=== PATIENT | female | born 2000 | race Caucasian/White ===

== ENCOUNTER 2023-12-18 19:11 | Emergency (ER) | payer OTHER, SELFPAY ==
[2023-12-18 19:13] VITALS: BP 139/86; PULSE 100; RESP 18; TEMP 37.1; O2SAT 100; BMI 42.0
--- NOTE | 2023-12-18 19:16 | HMH.EDGENADL ---
Discharge Plan Disposition Patient Disposition: Home, Self-Care Condition: Good Prescriptions Prescriptions: New amoxicillin-pot clavulanate 875-125 mg tablet 1 tab PO BID Qty: 20 0RF ondansetron 4 mg tablet,disintegrating 4 mg PO QID PRN (Reason: nausea and vomiting) Qty: 10 0RF No Action atomoxetine 25 mg capsule See Rx Instructions .ROUTE .COMPLEX Qty: 30 0RF Dose Instruction: TAKE 1 CAPSULE BY MOUTH EVERY DAY Rx Instructions: TAKE 1 CAPSULE BY MOUTH EVERY DAY Referrals Follow up/Referrals: Nolvia Steele PA [Primary Care Provider] - See instructions Activity Restrictions/Add. Instructions Additional Instructions/Restrictions: Please take Tylenol Motrin every 4 hours for symptomatic treatment. Return to the ER for any worsening signs or symptoms including increasing pain fever shortness of breath. Clinical Impressions Clinical Impression: Acute streptococcal pharyngitis Stand Alone Forms Stand Alone Forms: Work/School Release Print Language Print Language: Romanian Discharge ED Provider: Aman Pereira General Adult HPI <CARLENE Matthews - Last Filed: 12/18/23 19:58> General Chief complaint: Nausea/Vomiting/Diarrhea Stated complaint: Sore throat,body aches Time Seen by Provider: 12/18/23 19:16 History of Present Illness HPI narrative: Patient presents for evaluation of sore throat nausea vomiting diarrhea. Patient states that she woke up this morning with a very sore throat. Throughout the day she has now progressed to nausea vomiting and diarrhea and reports that it is painful to swallow. She does not report any subjective fever and denies any difficulty with oral intake although it hurts. Related Data Previous Rx's ?Medication ?Instructions ?Recorded atomoxetine 25 mg capsule See Rx Instructions .Route 03/29/22 .COMPLEX #30 caps amoxicillin 875 mg-potassium 1 tab PO BID #20 tabs 12/18/23 clavulanate 125 mg tablet ondansetron 4 mg disintegrating 4 mg PO QID PRN nausea and 12/18/23 tablet vomiting #10 tabs Allergies Allergy/AdvReac Type Severity Reaction Status Date / Time Sulfa (Sulfonamide Allergy Mild Verified 01/18/22 10:51 Antibiotics) [SULFA (SULFONAMIDE ANTIBIOTICS)] sulfamethoxazole Allergy Unknown Verified 01/18/22 10:51 [From BACTRIM] trimethoprim [From BACTRIM] Allergy Unknown Verified 01/18/22 10:51 PFS <CARLENE Matthews - Last Filed: 12/18/23 19:58> [facility] Disclaimer: The information contained in this section may have been updated after the patient was seen, as this information can be updated by other users. Medical History (Updated 12/18/23 @ 19:36 by CARLENE Matthews) Attention Deficit Hyperactivity Disorder (ADHD) Social History Smoking Status: Never smoker alcohol intake: never substance use type: denies use current occupational status: employed Travel in the last 8 weeks: None <CARLENE Matthews Last Filed: 12/18/23 19:58> ROS Obtained: Yes Systems reviewed as appropriate & no additional complaints except as documented Physical Exam <CARLENE Matthews - Last Filed: 12/18/23 19:58> General General appearance: alert and in no apparent distress Head Head exam: atraumatic and normal inspection Eye Eye exam: Present normal appearance, PERRL and EOMI ENT ENT exam: Present normal exam, normal oropharynx and mucous membranes moist Neck Neck exam: Present normal inspection, full ROM and trachea midline; Absent lymphadenopathy Chest Chest inspection: Present normal inspection and symmetric chest wall rise Respiratory Respiratory exam: Present normal lung sounds bilaterally Cardiovascular Cardiovascular exam: Present regular rate Abdominal Exam Abdominal exam: Present soft and normal bowel sounds; Absent tenderness, guarding or rebound Extremities Exam Extremities exam: Present normal inspection and full ROM Neurological Exam Neurological exam: Present alert and oriented X3 Psychiatric Psychiatric exam: Present normal affect and normal mood Skin Skin exam: Present warm, dry and normal color Lymphatic Lymphatic Findings: no adenopathy Medical Decision Making <CARLENE Matthews - Last Filed: 12/18/23 19:58> Tuan Inquiry Pt receiving controlled substance: No Vital Signs: 12/18/23 19:13 12/18/23 20:04 Temperature 98.7 F 98.2 F Temperature Source Oral Oral Pulse Rate 72 Pulse Rate [Right Brachial] 100 H Respiratory Rate 18 19 Blood Pressure 144/92 H Blood Pressure [Right Arm] 139/86 Blood Pressure Mean [Right Arm] 103 Blood Pressure Source Automatic Cuff Blood Pressure Source [Right Arm] Automatic Cuff Blood Pressure Position Sitting Blood Pressure Position [Right Arm] Sitting 02 Sat by Pulse Oximetry 100 Oxygen Delivery Method Room Air Room Air Lab Data Lab results reviewed: Yes I reviewed the patient's lab results. Lab Results 12/18/23 19:20: SARS-CoV-2 (PCR) Not detected, Influenza A Untype (PCR) Not detected, Influenza Type B (PCR) Not detected, Group A Strep Rapid Negative Orders (Tests/Meds): ED MEDICATIONS Discontinued Medications Generic Name Dose Route Start Last Admin Trade Name Araceli PRN Reason Stop Dose Admin Acetaminophen 1,000 mg 12/18/23 19:24 12/18/23 19:32 Acetaminophen 500mg Tab PO 12/18/23 19:25 1,000 mg ONCE ONE Administration Amoxicillin/Clavulanate Potassium 1 each 12/18/23 19:25 12/18/23 19:32 Amoxicillin/Clavulanate Potassium 875/125mg Tablet PO 12/18/23 19:26 1 each ONCE ONE Administration Ibuprofen 800 mg 12/18/23 19:24 12/18/23 19:32 Ibuprofen 400 Mg Tablet PO 12/18/23 19:25 800 mg ONCE ONE Administration ORDERS Category Date Time Status Rapid PCR Covid and Flu A/B Stat Lab 12/18/23 19:20 Completed Strep Scrn Group A (Rapid) Stat Lab 12/18/23 19:20 Completed Strep Screen Confirmation Stat Micro 12/18/23 19:20 Received Medical Decision Narrative: In summary patient is a 23-year-old female who presents to the emergency department for evaluation of sore throat nausea vomiting diarrhea. Patient is normotensive but tachycardic at the time my exam of the 120 upon arrival, afebrile. Physical exam is remarkable for exudative pharyngitis with beefy red tonsils, bilateral cervical lymphadenopathy benign abdominal exam with hyperactive bowel sounds. Differential diagnosis includes strep pharyngitis versus other bacterial pharyngitis. Initial workup will be conducted with rapid strep. Initial interventions include Zofran acetaminophen ibuprofen. Initial workup reviewed by me and her rapid strep is negative. Upon repeat evaluation patient heart rate is now down to 100 at the time of my exam and reports moderate improvement in her constitutional symptoms. Given this patient is given a prescription for Augmentin with first dose given here. While group A strep is negative patient definitely has exudative pharyngitis and has all the hallmarks of a streptococcal infection. Patient given strict return precaution <Aman Pereira MD - Last Filed: 12/18/23 21:32> Vital Signs: 12/18/23 19:13 12/18/23 20:04 Temperature 98.7 F 98.2 F Temperature Source Oral Oral Pulse Rate 72 Pulse Rate [Right Brachial] 100 H Respiratory Rate 18 19 Blood Pressure 144/92 H Blood Pressure [Right Arm] 139/86 Blood Pressure Mean [Right Arm] 103 Blood Pressure Source Automatic Cuff Blood Pressure Source [Right Arm] Automatic Cuff Blood Pressure Position Sitting Blood Pressure Position [Right Arm] Sitting 02 Sat by Pulse Oximetry 100 Oxygen Delivery Method Room Air Room Air Lab Data Lab Results 12/18/23 19:20: SARS-CoV-2 (PCR) Not detected, Influenza A Untype (PCR) Not detected, Influenza Type B (PCR) Not detected, Group A Strep Rapid Negative Orders (Tests/Meds): ED MEDICATIONS Discontinued Medications Generic Name Dose Route Start Last Admin Trade Name Araceli PRN Reason Stop Dose Admin Acetaminophen 1,000 mg 12/18/23 19:24 12/18/23 19:32 Acetaminophen 500mg Tab PO 12/18/23 19:25 1,000 mg ONCE ONE Administration Amoxicillin/Clavulanate Potassium 1 each 12/18/23 19:25 12/18/23 19:32 Amoxicillin/Clavulanate Potassium 875/125mg Tablet PO 12/18/23 19:26 1 each ONCE ONE Administration Ibuprofen 800 mg 12/18/23 19:24 12/18/23 19:32 Ibuprofen 400 Mg Tablet PO 12/18/23 19:25 800 mg ONCE ONE Administration ORDERS Category Date Time Status Rapid PCR Covid and Flu A/B Stat Lab 12/18/23 19:20 Completed Strep Scrn Group A (Rapid) Stat Lab 12/18/23 19:20 Completed Strep Screen Confirmation Stat Micro 12/18/23 19:20 Received Medical Decision Narrative: In summary patient is a 23-year-old female who presents to the emergency department for evaluation of sore throat nausea vomiting diarrhea. Patient is normotensive but tachycardic at the time my exam of the 120 upon arrival, afebrile. Physical exam is remarkable for exudative pharyngitis with beefy red tonsils, bilateral cervical lymphadenopathy benign abdominal exam with hyperactive bowel sounds. Differential diagnosis includes strep pharyngitis versus other bacterial pharyngitis. Initial workup will be conducted with rapid strep. Initial interventions include Zofran acetaminophen ibuprofen. Initial workup reviewed by me and her rapid strep is negative. Upon repeat evaluation patient heart rate is now down to 100 at the time of my exam and reports moderate improvement in her constitutional symptoms. Given this patient is given a prescription for Augmentin with first dose given here. While group A strep is negative patient definitely has exudative pharyngitis and has all the hallmarks of a streptococcal infection. Patient given strict return precaution I was consulted by the ANTHONY, and we discussed the complexity of the problems being addressed. I approved the treatment and management plan for this patient's care in the Emergency Department, thus performing a substantive portion of the medical decision making. Aman Pereira MD Critical Care <CARLENE Matthews - Last Filed: 12/18/23 19:58> Critical Care Time Critical Care Time: No
[2023-12-18 19:27] LABS: Coronavirus 19, PCR Not Detected (NotDetected); Influenza A, PCR Not Detected (NotDetected); Influenza B, PCR Not Detected (NotDetected)
[2023-12-18] MEDS: IBUPROFEN 400 MG TABLET 800 MG PO (19:32)
[2023-12-18] MEDS: ACETAMINOPHEN 500MG TAB 1000 MG PO (19:32)
[2023-12-18] MEDS: AMOXICILLIN/CLAVULANATE POTASSIUM 875/125MG TABLET 1 EACH PO (19:32)
[2023-12-18 19:42] LABS: Strep Scrn Group A (Rapid) Negative (Negative)
[2023-12-18 20:04] VITALS: BP 144/92; PULSE 72; RESP 19; TEMP 36.8; O2SAT 98
== END 2023-12-18 20:06 | disposition home or self-care (01) ==
PROVIDERS: Physician Assistant; Emergency Provider Emergency Medicine; PCP Physician Assistant
DX: J02.0 Streptococcal pharyngitis (principal); R11.2 Nausea with vomiting, unspecified; R19.7 Diarrhea, unspecified; R07.0 Pain in throat
CPT/HCPCS: 87430; 87636; 99283

== ENCOUNTER 2024-02-03 16:09 | Emergency (ER) | payer OTHER, SELFPAY ==
[2024-02-03 16:11] VITALS: BP 129/88; PULSE 97; RESP 18; TEMP 36.8; O2SAT 100; BMI 40.2
[2024-02-03 17:29] LABS: Coronavirus 19, PCR Not Detected (NotDetected); Influenza A, PCR Not Detected (NotDetected); Influenza B, PCR Not Detected (NotDetected)
--- NOTE | 2024-02-03 17:39 | HMH.EDGENADL ---
Discharge Plan Disposition Patient Disposition: Home, Self-Care Prescriptions Prescriptions: New ondansetron 4 mg tablet,disintegrating 4 mg PO Q6H PRN (Reason: nausea and vomiting) Qty: 10 0RF No Action atomoxetine 25 mg capsule See Rx Instructions .ROUTE .COMPLEX Qty: 30 0RF Dose Instruction: TAKE 1 CAPSULE BY MOUTH EVERY DAY Rx Instructions: TAKE 1 CAPSULE BY MOUTH EVERY DAY amoxicillin-pot clavulanate 875-125 mg tablet 1 tab PO BID Qty: 20 0RF ondansetron 4 mg tablet,disintegrating 4 mg PO QID PRN (Reason: nausea and vomiting) Qty: 10 0RF Referrals Follow up/Referrals: Nolvia Steele PA [Primary Care Provider] - See instructions Activity Restrictions/Add. Instructions Additional Instructions/Restrictions: Call your family doctor to establish care for this visit to the emergency department and schedule follow-up within 48 hours to ensure improvement. If you have any worsening of your condition or any other concerning signs or symptoms, return to the emergency department or your primary care doctor for further evaluation. Zofran every 6 hours as needed for nausea and vomiting. Clinical Impressions Clinical Impression: Acute viral sinusitis Print Language Print Language: Ivorian Discharge ED Provider: Aman Pereira General Adult HPI General Chief complaint: Upper Respiratory Infection Stated complaint: Sore throat,avomiting,OAKES,runny nose,no taste or sm Time Seen by Provider: 02/03/24 17:18 Mode of Arrival: Ambulatory Source of Information: Patient Limitations: No Limitations Description of Symptoms (Recalled from ER Triage Doc. by RN): body aches,stuffy nose, congestion,diarrhea. History of Present Illness HPI narrative: Please note that above description of symptoms, in this electronic medical record under categorization of recalled from ER triage doctor by RN are reflective of an initial nursing assessment, however, is not reflective of my full history and physical exam that was personally taken and clarified. Consequentially, this preceding description of symptoms, which may include the patient's categorized chief complaint in the EMR, do not reflect my personal clinical impression, and the ultimate description of history of present illness and patient stated complaints should be deferred to this section of the note. Unless stated otherwise or congruent with this section of the note, additional signs, symptoms, or incongruence should be interpreted as inaccurate with my clinical impression. Related Data Previous Rx's ?Medication ?Instructions ?Recorded atomoxetine 25 mg capsule See Rx Instructions .Route 03/29/22 .COMPLEX #30 caps amoxicillin 875 mg-potassium 1 tab PO BID #20 tabs 12/18/23 clavulanate 125 mg tablet ondansetron 4 mg disintegrating 4 mg PO QID PRN nausea and 12/18/23 tablet vomiting #10 tabs ondansetron 4 mg disintegrating 4 mg PO Q6H PRN nausea and 02/03/24 tablet vomiting #10 tabs Allergies Allergy/AdvReac Type Severity Reaction Status Date / Time Sulfa (Sulfonamide Allergy Mild Verified 01/18/22 10:51 Antibiotics) [SULFA (SULFONAMIDE ANTIBIOTICS)] sulfamethoxazole Allergy Unknown Verified 01/18/22 10:51 [From BACTRIM] trimethoprim [From BACTRIM] Allergy Unknown Verified 01/18/22 10:51 PFSH PFS Disclaimer: The information contained in this section may have been updated after the patient was seen, as this information can be updated by other users. Medical History (Updated 02/03/24 @ 17:46 by Aman Pereira MD) Attention Deficit Hyperactivity Disorder (ADHD) Social History Smoking Status: Never smoker alcohol intake: never substance use type: denies use current occupational status: employed Travel in the last 8 weeks: None Other Medical History Have you received the Flu Vaccine for this season: No Have you received the Pneumonia Vaccine: No ROS Obtained: Yes All systems reviewed & no additional complaints except as documented Physical Exam General General appearance: alert Head Head exam: atraumatic and normocephalic Eye Eye exam: Present normal appearance, PERRL and EOMI ENT ENT exam: Present TM's normal bilaterally and normal external ear exam Neck Neck exam: Present normal inspection, full ROM and trachea midline Respiratory Respiratory exam: Present normal lung sounds bilaterally; Absent respiratory distress, wheezes, stridor, accessory muscle use or prolonged expiratory phase Cardiovascular Cardiovascular exam: Present regular rate, normal rhythm and other (Pulses equal symmetric in upper and lower extremities) Abdominal Exam Abdominal exam: Present soft; Absent distention, tenderness or pulsatile mass Extremities Exam Extremities exam: Present normal inspection; Absent edema Neurological Exam Neurological exam: Present alert, oriented X3 and CN II-XII intact; Absent motor sensory deficit Skin Skin exam: Present warm and dry; Absent diaphoresis or erythema Medical Decision Making Medical Records Medical records reviewed: Yes I reviewed the patient's medical records. Screening: Per USPSTF and CDC recommendations, given the prevalence of disease in our region, it is our hospital?s policy to screen for HIV and viral Hepatitis for all patients aged 18 and over and those with ongoing risk factors. Tuan Inquiry Pt receiving controlled substance: No Tuan was queried for this patient: No Vital Signs: 02/03/24 16:11 02/03/24 18:00 Temperature 98.3 F Temperature Source Oral Pulse Rate 80 Pulse Rate [Right] 97 H Respiratory Rate 18 Blood Pressure 108/58 L Blood Pressure [Right Arm] 129/88 Blood Pressure Mean [Right Arm] 101 02 Sat by Pulse Oximetry 100 99 Oxygen Delivery Method Room Air Lab Data Lab Results 02/03/24 17:25: SARS-CoV-2 (PCR) Not detected, Influenza A Untype (PCR) Not detected, Influenza Type B (PCR) Not detected, Group A Strep Rapid Negative Orders (Tests/Meds): ED MEDICATIONS Discontinued Medications Generic Name Dose Route Start Last Admin Trade Name Freq PRN Reason Stop Dose Admin Ondansetron HCl 4 mg 02/03/24 17:39 02/03/24 17:46 Ondansetron 4mg Odt SL 02/03/24 17:40 4 mg ONCE ONE Administration ORDERS Category Date Time Status Rapid PCR Covid and Flu A/B Stat Lab 02/03/24 17:25 Completed Rapid Strep Scrn Group A [Strep Scrn Group A (Rapid)] Lab 02/03/24 17:25 Completed Stat Strep Screen Confirmation Stat Micro 02/03/24 17:25 Received Medical Decision Narrative: This is a 23-year-old female no relevant medical history presenting with multiple complaints. Patient states that she has had a couple day onset of runny nose, cough, congestion, nausea, vomiting, loss of taste or smell, right ear ache. States that she has numerous sick contacts. Cough is productive of greenish sputum, but she feels that this is from her postnasal drip because she has been having dark green postnasal drip. Nonbloody, nonbilious vomiting. No urinary symptoms. Came for further evaluation. History obtained the patient. On arrival, very well-appearing. Normotensive, nontachycardic. Saturating 100% on room air. Patient has pharyngitis. No evidence of tonsillitis, exudate, uvular deviation, palatal swelling, trismus, external neck swelling, submental induration, dental abscess, angioedema, or other abnormal phylicia pharyngeal findings. Lungs are clear to auscultation anterior and posterior bilaterally. TMs within normal limits. Differential includes acute viral pharyngitis, viral sinusitis, among others. Patient was given Zofran for nausea. Swabs were obtained. On independent interpretation, these demonstrated negative strep and COVID. Given patient's history, physical exam, well appearance and stable vitals, blood work was considered, but not deemed necessary. Chest x-ray was also considered not deemed necessary. I feel this most likely represents acute viral pharyngitis and rhinosinusitis. Because patient at baseline without signs or symptoms of clinical decompensation, deemed appropriate for discharge. Results were relayed to patient who voiced understanding and were agreeable to outpatient management and follow up. I discussed my clinical impression with patient and answered all questions. At this time, the evidence for any other entities in the differential is insufficient to warrant any further testing or ED observation. This was explained as well. Advisory was given that persistent or worsening symptoms require further evaluation. I confirmed the understanding of this discussion. Lending Consultant disclaimer Much of this encounter note is an electronic certified medical transcriptionist spoken language to printed text. Electronic certified medical transcriptionist of the spoken language may permit errors. Although I have reviewed the note, some errors may still exist. Critical Care Critical Care Time Critical Care Time: No
[2024-02-03 17:43] LABS: Strep Scrn Group A (Rapid) Negative (Negative)
[2024-02-03] MEDS: ONDANSETRON 4MG ODT 4 MG SL (17:46)
[2024-02-03 18:00] VITALS: BP 108/58; PULSE 80; O2SAT 99
[2024-02-03 18:23] VITALS: BP 108/58; PULSE 99; RESP 18; TEMP 36.9; O2SAT 100
== END 2024-02-03 18:27 | disposition home or self-care (01) ==
PROVIDERS: Emergency Provider Emergency Medicine; PCP Physician Assistant
DX: J01.90 Acute sinusitis, unspecified (principal); J02.9 Acute pharyngitis, unspecified; R11.11 Vomiting without nausea; R51.9 Headache, unspecified; M79.10 Myalgia, unspecified site; R09.81 Nasal congestion; R19.7 Diarrhea, unspecified; R43.8 Other disturbances of smell and taste
CPT/HCPCS: 87430; 87636; 99282; Q0162

== ENCOUNTER 2024-02-18 09:30 | Emergency (ER) | payer OTHER, SELFPAY ==
[2024-02-18 09:41] VITALS: BP 118/64; PULSE 84; RESP 16; TEMP 36.6; O2SAT 99; BMI 45.7
[2024-02-18 10:03] LABS: UTC Pregnancy Test, Urine Positive (Negative)
--- NOTE | 2024-02-18 10:03 | EXP.UTC ---
Discharge Plan Disposition Patient Disposition: Home, Self-Care Condition: Good Prescriptions Prescriptions: No Action atomoxetine 25 mg capsule See Rx Instructions .ROUTE .COMPLEX Qty: 30 0RF Dose Instruction: TAKE 1 CAPSULE BY MOUTH EVERY DAY Rx Instructions: TAKE 1 CAPSULE BY MOUTH EVERY DAY amoxicillin-pot clavulanate 875-125 mg tablet 1 tab PO BID Qty: 20 0RF ondansetron 4 mg tablet,disintegrating 4 mg PO QID PRN (Reason: nausea and vomiting) Qty: 10 0RF ondansetron 4 mg tablet,disintegrating 4 mg PO Q6H PRN (Reason: nausea and vomiting) Qty: 10 0RF Referrals Follow up/Referrals: Nolvia Steele PA [Primary Care Provider] - See instructions Kristen Mauro DO [Staff Physician] - See instructions Fortino Gayle MD [Staff Physician] - See instructions Emperatriz Aldridge DO [Staff Physician] - See instructions Activity Restrictions/Add. Instructions Additional Instructions/Restrictions: Call and make appointment with OBGYN See OBGYN for further evaluation and treatment Return if needed Straight to ER if any life threatening symptoms Clinical Impressions Clinical Impression: Positive test Instructions Patient Instructions: DI for -- Discomforts and Remedies Print Language Print Language: Frisian Discharge ED Provider: Michelle Ayers [facility] General Stated complaint: possible UTI test Mode of Arrival: Ambulatory Source of Information: Patient Limitations: No Limitations Time Seen by Provider: 02/18/24 10:03 Description of Symptoms (Recalled from Triage Doc. by RN): Patient reports she is here for a test. HEENT Symptoms (Recalled from RN notes): No Resp Symptoms (Recalled from RN notes): No Skin Symptoms (Recalled from RN notes): No MS Symptoms (Recalled from RN notes): No Functional Status (Recalled from RN notes): wnl History of Present Illness Provider Complaint: Patient states that she is late on her period and took 3 home test and they was positive so today she came in to get checked to see if she may be Related Data Previous Rx's ?Medication ?Instructions ?Recorded atomoxetine 25 mg capsule See Rx Instructions .Route 03/29/22 .COMPLEX #30 caps amoxicillin 875 mg-potassium 1 tab PO BID #20 tabs 12/18/23 clavulanate 125 mg tablet ondansetron 4 mg disintegrating 4 mg PO QID PRN nausea and 12/18/23 tablet vomiting #10 tabs ondansetron 4 mg disintegrating 4 mg PO Q6H PRN nausea and 02/03/24 tablet vomiting #10 tabs Allergies Allergy/AdvReac Type Severity Reaction Status Date / Time Sulfa (Sulfonamide Allergy Mild Verified 01/18/22 10:51 Antibiotics) [SULFA (SULFONAMIDE ANTIBIOTICS)] sulfamethoxazole Allergy Unknown Verified 01/18/22 10:51 [From BACTRIM] trimethoprim [From BACTRIM] Allergy Unknown Verified 01/18/22 10:51 Worker's Comp Is this a Worker's Comp case?: No [facility] Disclaimer: The information contained in this section may have been updated after the patient was seen, as this information can be updated by other users. Medical History (Updated 02/18/24 @ 10:57 by Michelle Ayers APRN) Attention Deficit Hyperactivity Disorder (ADHD) Social History Smoking Status: Never smoker alcohol intake: never substance use type: denies use current occupational status: employed Travel in the last 8 weeks: None ROS Obtained: Yes All systems reviewed & no additional complaints except as documented and Yes Systems reviewed as appropriate & no additional complaints except as documented Constitutional Constitutional: Reports system reviewed and no additional complaints, except as documented and Reports as per HPI ENT Ears, Nose, Mouth, and Throat: Reports system reviewed and no additional complaints, except as documented and Reports as per HPI Cardiovascular Cardiovascular: Reports system reviewed and no additional complaints, except as documented and Reports as per HPI Respiratory Respiratory: Reports system reviewed and no additional complaints, except as documented and Reports as per HPI Gastrointestinal Gastrointestingal: Reports system reviewed and no additional complaints, except as documented and as per HPI Genitourinary Female Genitourinary: Reports system reviewed and no additional complaints, except as documented, Reports as per HPI and Reports other Comments: 3 positive home test and late on period Physical Exam General General appearance: alert and in no apparent distress Respiratory Respiratory exam: Present normal lung sounds bilaterally; Absent respiratory distress or wheezes Cardiovascular Cardiovascular exam: Present regular rate, normal rhythm and normal heart sounds Abdominal Exam Abdominal exam: Present soft and normal bowel sounds; Absent distention or tenderness Neurological Exam Neurological exam: Present alert, oriented X3 and normal gait Medical Decision Making Medical Records Screening: Per USPSTF and CDC recommendations, given the prevalence of disease in our region, it is our hospital?s policy to screen for HIV and viral Hepatitis for all patients aged 18 and over and those with ongoing risk factors. Tuan Inquiry Pt receiving controlled substance: No Tuan was queried for this patient: No Vital Signs: 02/18/24 09:41 Temperature 97.9 F Temperature Source Oral Pulse Rate [Radial] 84 Respiratory Rate 16 Blood Pressure [Right Arm] 118/64 Blood Pressure Mean [Right Arm] 82 Blood Pressure Source [Right Arm] Automatic Cuff Blood Pressure Position [Right Arm] Sitting 02 Sat by Pulse Oximetry 99 Oxygen Delivery Method Room Air Lab Data Lab results reviewed: Yes I reviewed the patient's lab results. Lab Results 02/18/24 09:46: [facility] Negative Orders (Tests/Meds): ORDERS Category Date Time Status Beta HCG, Qual [HCG Qualitative, Serum] Stat Lab 02/18/24 10:02 Ordered
[2024-02-18 10:49] LABS: HCG Qualitative, Serum Positive (Negative)
[2024-02-18 11:08] VITALS: BP 118/64; PULSE 84; RESP 16; TEMP 36.6; O2SAT 99
== END 2024-02-18 11:08 | disposition home or self-care (01) ==
PROVIDERS: Emergency Provider Nurse Practitioner; PCP Physician Assistant
DX: Z32.01 Encounter for pregnancy test, result positive (principal); N92.6 Irregular menstruation, unspecified
CPT/HCPCS: 81025; 84703; 99212; G0381

== ENCOUNTER 2024-04-03 12:34 | Emergency (ER) | payer OTHER, SELFPAY ==
[2024-04-03] VITALS (7 sets, daily range): BP systolic 114–135; BP diastolic 66–86; PULSE 100–122; RESP 18–26; TEMP 36.8–37.5; O2SAT 95–100; BMI 40.2
--- NOTE | 2024-04-03 12:32 | ECG_ITS ---
APPROVED REPORT Exam: Resting ECG HR:127 bpm ECG Measurements Heart Rate 127 AXES OK 120 P 58 QRSd 98 QRS 71 QT 335 T -24 QTc 410 Conclusion SINUS TACHYCARDIA NONSPECIFIC ST & T-WAVE ABNORMALITY Electronically signed by : HERNAN MAC, 04/05/2024 15:14:18
--- NOTE | 2024-04-03 12:38 | ED_ITS ---
Discharge Plan Disposition Patient Disposition: Home, Self-Care Condition: Good Prescriptions Prescriptions: No Action atomoxetine 25 mg capsule See Rx Instructions .ROUTE .COMPLEX Qty: 30 0RF Dose Instruction: TAKE 1 CAPSULE BY MOUTH EVERY DAY Rx Instructions: TAKE 1 CAPSULE BY MOUTH EVERY DAY amoxicillin-pot clavulanate 875-125 mg tablet 1 tab PO BID Qty: 20 0RF ondansetron 4 mg tablet,disintegrating 4 mg PO QID PRN (Reason: nausea and vomiting) Qty: 10 0RF ondansetron 4 mg tablet,disintegrating 4 mg PO Q6H PRN (Reason: nausea and vomiting) Qty: 10 0RF Referrals Follow up/Referrals: Nolvia Steele PA [Primary Care Provider] - See instructions Activity Restrictions/Add. Instructions Additional Instructions/Restrictions: Continue taking Tylenol and Motrin as needed for your symptoms. Follow-up with your PCP for recheck on Sunday. Return to ER for any worsening signs or symptoms as needed. Clinical Impressions Clinical Impression: Influenza A Stand Alone Forms Stand Alone Forms: Work/School Release Instructions Patient Instructions: DI for Influenza -- Adult Print Language Print Language: [place] Discharge ED Provider: Aman Pereira General Adult HPI <CARLENE Matthews - Last Filed: 04/03/24 15:53> General Chief complaint: Chest Pain Stated complaint: Chest Pain Time Seen by Provider: 04/03/24 12:38 History of Present Illness HPI narrative: Patient presents for 2 days of cough and with pain with coughing. He began Radha Giselle and has persisted. Patient reports malaise but no dyspnea on exertion no increased work of breathing but coughing causes her to feel nauseated and vomit. She is tolerant of oral intake and has had normal bowel and bladder function. She is 10 weeks . Related Data Previous Rx's ?Medication ?Instructions ?Recorded atomoxetine 25 mg capsule See Rx Instructions .Route 03/29/22 .COMPLEX #30 caps amoxicillin 875 mg-potassium 1 tab PO BID #20 tabs 12/18/23 clavulanate 125 mg tablet ondansetron 4 mg disintegrating 4 mg PO QID PRN nausea and 12/18/23 tablet vomiting #10 tabs ondansetron 4 mg disintegrating 4 mg PO Q6H PRN nausea and 02/03/24 tablet vomiting #10 tabs Allergies Allergy/AdvReac Type Severity Reaction Status Date / Time Sulfa (Sulfonamide Allergy Mild Verified 01/18/22 10:51 Antibiotics) (SULFA (SULFONAMIDE ANTIBIOTICS)) sulfamethoxazole (From Allergy Unknown Verified 01/18/22 10:51 BACTRIM) trimethoprim (From BACTRIM) Allergy Unknown Verified 01/18/22 10:51 PFSH <CARLENE Matthews - Last Filed: 04/03/24 15:53> [facility] Disclaimer: The information contained in this section may have been updated after the patient was seen, as this information can be updated by other users. Medical History (Updated 04/03/24 @ 15:00 by CARLENE Matthews) Attention Deficit Hyperactivity Disorder (ADHD) Social History Smoking Status: Never smoker alcohol intake: never substance use type: denies use current occupational status: employed Travel in the last 8 weeks: None Have you lived/traveled outside [place] in past 30 days?: No Contact w/someone who lives/traveled outside US past 30 days?: No Exposure to someone with infectious disease in past 14 days?: No Do you have a fever (greater than 100.4 F or 38 C)?: No Have you tested positive for COVID-19: No Exposed to someone with COVID-19 in past 14 days?: No Do you have a sore throat?: No Do you have a cough?: No Do you have any weakness?: No Do you have any diarrhea?: No Are you experiencing any unusual bleeding?: No Do you have any muscle aches/pain?: No Do you have any abdominal pain?: No Are you experiencing loss of taste or smell?: No Other Medical History Have you received the Flu Vaccine for this season: No Have you received the Pneumonia Vaccine: No <CARLENE Matthews - Last Filed: 04/03/24 15:53> ROS Obtained: Yes Systems reviewed as appropriate & no additional complaints except as documented Physical Exam <CARLENE Matthews - Last Filed: 04/03/24 15:53> General General appearance: alert and in no apparent distress Respiratory Respiratory exam: Present normal lung sounds bilaterally Cardiovascular Cardiovascular exam: Present regular rate Neurological Exam Neurological exam: Present alert and oriented X3 Medical Decision Making <CARLENE Matthews - Last Filed: 04/03/24 15:53> Medical Records Medical records reviewed: Yes I reviewed the patient's medical records. Screening: Per USPSTF and CDC recommendations, given the prevalence of disease in our region, it is our hospital?s policy to screen for HIV and viral Hepatitis for all patients aged 18 and over and those with ongoing risk factors. Tuan Inquiry Pt receiving controlled substance: No Vital Signs: 04/03/24 12:35 04/03/24 12:42 04/03/24 13:01 Temperature 99.5 F 98.2 F Temperature Source Oral Oral Pulse Rate 122 H Pulse Rate [Apical] 114 H Pulse Rate [Left Radial] 118 H Respiratory Rate 18 20 22 Blood Pressure 121/70 Blood Pressure [Left Arm] 129/86 Blood Pressure [Right Arm] 116/80 Blood Pressure Mean Blood Pressure Mean [Left Arm] 100 Blood Pressure Mean [Right Arm] 92 Blood Pressure Source Blood Pressure Source [Left Arm] Automatic Cuff Blood Pressure Position Blood Pressure Position [Left Arm] Sitting 02 Sat by Pulse Oximetry 100 100 100 Oxygen Delivery Method Room Air Room Air Room Air 04/03/24 13:30 04/03/24 14:01 04/03/24 14:30 Temperature Temperature Source Pulse Rate 114 H 120 H 103 H Pulse Rate [Apical] Pulse Rate [Left Radial] Respiratory Rate 26 H 25 H 22 Blood Pressure 129/77 135/67 117/66 Blood Pressure [Left Arm] Blood Pressure [Right Arm] Blood Pressure Mean 83 Blood Pressure Mean [Left Arm] Blood Pressure Mean [Right Arm] Blood Pressure Source Blood Pressure Source [Left Arm] Blood Pressure Position Blood Pressure Position [Left Arm] 02 Sat by Pulse Oximetry 100 100 95 Oxygen Delivery Method Room Air Room Air 04/03/24 15:06 Temperature 98.9 F Temperature Source Oral Pulse Rate 100 H Pulse Rate [Apical] Pulse Rate [Left Radial] Respiratory Rate 18 Blood Pressure 114/75 Blood Pressure [Left Arm] Blood Pressure [Right Arm] Blood Pressure Mean Blood Pressure Mean [Left Arm] Blood Pressure Mean [Right Arm] Blood Pressure Source Automatic Cuff Blood Pressure Source [Left Arm] Blood Pressure Position Sitting Blood Pressure Position [Left Arm] 02 Sat by Pulse Oximetry Oxygen Delivery Method Room Air Lab Data Lab results reviewed: Yes I reviewed the patient's lab results. Lab Results 04/03/24 12:40: WBC 4.5 L, RBC 4.52, Hgb 13.1, Hct 38.8, MCV 85.8, MCH 29.0, MCHC 33.8, RDW 12.9, Plt Count 188, MPV 11.6 H, Neut % (Auto) 81.3 H, Lymph % (Auto) 4.7 L, [place] % (Auto) 12.7 H, Eos % (Auto) 0.2, Baso % (Auto) 0.7, Neut # (Auto) 3.7, Lymph # (Auto) 0.2 L, [place] # (Auto) 0.6, Eos # (Auto) 0.0, Baso # (Auto) 0.0, D-Dimer 0.85 H, Sodium 133 L, Potassium 3.8, Chloride 103, Carbon Dioxide 21 L, Anion Gap 12.8, BUN 7, Creatinine 0.70, Estimated Creat Clear 195, Estimated GFR 103, Est GFR ( Amer) 124, Glucose 127 H, Calcium 9.3, Magnesium 1.7, Total Bilirubin 0.7, AST 26, ALT 18, Alkaline Phosphatase 58, Total Protein 6.9, Albumin 4.1, Globulin 2.8, Albumin/Globulin Ratio 1.5, Procalcitonin 0.037 04/03/24 13:02: SARS-CoV-2 (PCR) Not detected, Influenza A Untype (PCR) Detected A, Influenza Type B (PCR) Not detected 04/03/24 12:40 04/03/24 12:40 Orders (Tests/Meds): ED MEDICATIONS Discontinued Medications Generic Name Dose Route Start Last Admin Trade Name Freq PRN Reason Stop Dose Admin Acetaminophen 1,000 mg 04/03/24 12:44 04/03/24 13:02 Acetaminophen 500mg Tab PO 04/03/24 12:45 1,000 mg ONCE ONE Administration Sodium Chloride 1,000 mls @ 999 mls/hr 04/03/24 12:44 04/03/24 13:03 Sod Chlor 0.9% 1000ml Bag IV 04/03/24 13:44 999 mls/hr .Q1H1M ONE Administration Ondansetron HCl 4 mg 04/03/24 12:44 04/03/24 13:02 Ondansetron 4mg/2ml Vial IV 04/03/24 12:45 4 mg ONCE ONE Administration ORDERS Category Date Time Status CBC w/Auto Diff [Complete Blood Count Auto Diff] Stat Lab 04/03/24 12:40 Completed CMP [Comprehensive Metabolic Panel] Stat Lab 04/03/24 12:40 Completed D-Dimer Stat Lab 04/03/24 12:40 Completed Magnesium Stat Lab 04/03/24 12:40 Completed Procalcitonin Stat Lab 04/03/24 12:40 Completed Rapid PCR Covid and Flu A/B Stat Lab 04/03/24 13:02 Completed Medical Decision Narrative: In summary patient is a 23-year-old female who presents to the emergency department for evaluation of painful cough. Patient is initially normotensive at 126/86 with a pulse of 114 breathing 18 times a minute satting at 100% on room air upon arrival, with a temperature of 99.5. 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 Differential diagnosis includes viral or bacterial upper respiratory tract infection. Initial workup will be conducted with hematologic labs plain film chest x-ray twelve-lead EKG COVID and flu swabs. Initial interventions include crystalloid bolus and Tylenol and Zofran given her . Initial workup reviewed by me shows her hematologic labs are nonactionable patient declined a chest x-ray and her respiratory swabs were positive for influenza A. Upon repeat evaluation patient heart rate did come down to 100 and her temperature come down to 98.9. Given this patient is appropriate for discharge with recommendations for symptomatic treatment and follow-up with her PCP next week sooner if she has any worsening signs or symptoms or return to the ER as needed. <Aman Pereira MD - Last Filed: 04/04/24 11:40> Vital Signs: 04/03/24 12:35 04/03/24 12:42 04/03/24 13:01 Temperature 99.5 F 98.2 F Temperature Source Oral Oral Pulse Rate 122 H Pulse Rate [Apical] 114 H Pulse Rate [Left Radial] 118 H Respiratory Rate 18 20 22 Blood Pressure 121/70 Blood Pressure [Left Arm] 129/86 Blood Pressure [Right Arm] 116/80 Blood Pressure Mean Blood Pressure Mean [Left Arm] 100 Blood Pressure Mean [Right Arm] 92 Blood Pressure Source Blood Pressure Source [Left Arm] Automatic Cuff Blood Pressure Position Blood Pressure Position [Left Arm] Sitting 02 Sat by Pulse Oximetry 100 100 100 Oxygen Delivery Method Room Air Room Air Room Air 04/03/24 13:30 04/03/24 14:01 04/03/24 14:30 Temperature Temperature Source Pulse Rate 114 H 120 H 103 H Pulse Rate [Apical] Pulse Rate [Left Radial] Respiratory Rate 26 H 25 H 22 Blood Pressure 129/77 135/67 117/66 Blood Pressure [Left Arm] Blood Pressure [Right Arm] Blood Pressure Mean 83 Blood Pressure Mean [Left Arm] Blood Pressure Mean [Right Arm] Blood Pressure Source Blood Pressure Source [Left Arm] Blood Pressure Position Blood Pressure Position [Left Arm] 02 Sat by Pulse Oximetry 100 100 95 Oxygen Delivery Method Room Air Room Air 04/03/24 15:06 Temperature 98.9 F Temperature Source Oral Pulse Rate 100 H Pulse Rate [Apical] Pulse Rate [Left Radial] Respiratory Rate 18 Blood Pressure 114/75 Blood Pressure [Left Arm] Blood Pressure [Right Arm] Blood Pressure Mean Blood Pressure Mean [Left Arm] Blood Pressure Mean [Right Arm] Blood Pressure Source Automatic Cuff Blood Pressure Source [Left Arm] Blood Pressure Position Sitting Blood Pressure Position [Left Arm] 02 Sat by Pulse Oximetry Oxygen Delivery Method Room Air Lab Data Lab Results 04/03/24 12:40: WBC 4.5 L, RBC 4.52, Hgb 13.1, Hct 38.8, MCV 85.8, MCH 29.0, MCHC 33.8, RDW 12.9, Plt Count 188, MPV 11.6 H, Neut % (Auto) 81.3 H, Lymph % (Auto) 4.7 L, [place] % (Auto) 12.7 H, Eos % (Auto) 0.2, Baso % (Auto) 0.7, Neut # (Auto) 3.7, Lymph # (Auto) 0.2 L, [place] # (Auto) 0.6, Eos # (Auto) 0.0, Baso # (Auto) 0.0, D-Dimer 0.85 H, Sodium 133 L, Potassium 3.8, Chloride 103, Carbon Dioxide 21 L, Anion Gap 12.8, BUN 7, Creatinine 0.70, Estimated Creat Clear 195, Estimated GFR 103, Est GFR ( Amer) 124, Glucose 127 H, Calcium 9.3, Magnesium 1.7, Total Bilirubin 0.7, AST 26, ALT 18, Alkaline Phosphatase 58, Total Protein 6.9, Albumin 4.1, Globulin 2.8, Albumin/Globulin Ratio 1.5, Procalcitonin 0.037 04/03/24 13:02: SARS-CoV-2 (PCR) Not detected, Influenza A Untype (PCR) Detected A, Influenza Type B (PCR) Not detected Orders (Tests/Meds): ED MEDICATIONS Discontinued Medications Generic Name Dose Route Start Last Admin Trade Name Freq PRN Reason Stop Dose Admin Acetaminophen 1,000 mg 04/03/24 12:44 04/03/24 13:02 Acetaminophen 500mg Tab PO 04/03/24 12:45 1,000 mg ONCE ONE Administration Sodium Chloride 1,000 mls @ 999 mls/hr 04/03/24 12:44 04/03/24 13:03 Sod Chlor 0.9% 1000ml Bag IV 04/03/24 13:44 999 mls/hr .Q1H1M ONE Administration Ondansetron HCl 4 mg 04/03/24 12:44 04/03/24 13:02 Ondansetron 4mg/2ml Vial IV 04/03/24 12:45 4 mg ONCE ONE Administration ORDERS Category Date Time Status CBC w/Auto Diff [Complete Blood Count Auto Diff] Stat Lab 04/03/24 12:40 Completed CMP [Comprehensive Metabolic Panel] Stat Lab 04/03/24 12:40 Completed D-Dimer Stat Lab 04/03/24 12:40 Completed Magnesium Stat Lab 04/03/24 12:40 Completed Procalcitonin Stat Lab 04/03/24 12:40 Completed Rapid PCR Covid and Flu A/B Stat Lab 04/03/24 13:02 Completed Medical Decision Narrative: In summary patient is a 23-year-old female who presents to the emergency department for evaluation of painful cough. Patient is initially normotensive at 126/86 with a pulse of 114 breathing 18 times a minute satting at 100% on room air upon arrival, with a temperature of 99.5. 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 Differential diagnosis includes viral or bacterial upper respiratory tract infection. Initial workup will be conducted with hematologic labs plain film chest x-ray twelve-lead EKG COVID and flu swabs. Initial interventions include crystalloid bolus and Tylenol and Zofran given her . Initial workup reviewed by me shows her hematologic labs are nonactionable patient declined a chest x-ray and her respiratory swabs were positive for influenza A. Upon repeat evaluation patient heart rate did come down to 100 and her temperature come down to 98.9. Given this patient is appropriate for discharge with recommendations for symptomatic treatment and follow-up with her PCP next week sooner if she has any worsening signs or symptoms or return to the ER as needed. I was consulted by the ANTHONY, and we discussed the complexity of the problems being addressed. I approved the treatment and management plan for this patient's care in the Emergency Department, thus performing a substantive portion of the medical decision making. Aman Pereira MD Critical Care <CARLENE Matthews - Last Filed: 04/03/24 15:53> Critical Care Time Critical Care Time: No
[2024-04-03] MEDS: ONDANSETRON 4MG/2ML VIAL 4 MG IV (13:02)
[2024-04-03] MEDS: ACETAMINOPHEN 500MG TAB 1000 MG PO (13:02)
[2024-04-03 13:03] LABS: Alanine Aminotransferase 18 U/L (12-78); Albumin Level 4.1 g/dl (3.5-5.0); Albumin/Globulin Ratio 1.5 (1.1-1.8); Alkaline Phosphatase 58 U/L (38-126); Anion Gap 12.8 mEq/L (5-15); Aspartate Amino Transferase 26 U/L (14-36); Bilirubin,Total 0.7 mg/dl (0.2-1.3); Blood Urea Nitrogen 7 mg/dl (7-17); Calcium 9.3 mg/dl (8.4-10.2); Carbon Dioxide 21 mmol/L (22.0-30.0); Chloride 103 mmol/L (98-107); Creatinine Clearance Estimated 195 mL/min (50-200); Estimated Glomerular Filt Rate 103 ml/min (>60); GFR (African American) 124 ML/MIN (>60); Globulin 2.8 g/dL (1.3-3.2); Glucose 127 mg/dl (74-100); Magnesium 1.7 mg/dl (1.6-2.3); Potassium 3.8 mmoL/L (3.5-5.1); Sodium 133 mmol/L (136-145); Total Protein,Serum 6.9 g/dl (6.3-8.2)
[2024-04-03] MEDS: 0.9 % SODIUM CHLORIDE 1000ML 1,000 ML 999 ML IV (13:03)
--- NOTE | 2024-04-03 13:03 | PC.NURSE ---
PT REFUSED CXR AT THIS TIME, [facility]ALE NOTIFIED
[2024-04-03 13:06] LABS: Hematocrit 38.8 % (37.0-47.0); Hemoglobin 13.1 g/dL (12.2-16.2); Red Blood Count 4.52 M/mm3 (4.20-5.40); White Blood Count 4.5 K/mm3 (4.8-10.8)
[2024-04-03 13:07] LABS: Basophils % 0.7 % (0.1-2.0); Eosinophils % 0.2 % (0.1-12.0); Lymphocytes # 0.2 K/mm3 (0.7-4.5); Lymphocytes % 4.7 % (10-50); Mean Corpuscular HGB Conc 33.8 g/dL (31.8-35.4); Mean Corpuscular Volume 85.8 fl (81-99); Mean Platelet Volume 11.6 fl (7.4-10.4); Monocytes # 0.6 K/mm3 (0.1-1.0); Monocytes % 12.7 % (1.7-9.3); Neutrophils # 3.7 K/mm3 (1.8-7.8); Neutrophils % 81.3 % (37.0-80.0); Platelet Count 188 K/mm3 (142-424); Red Cell Distribution Width 12.9 % (11.5-17.5)
[2024-04-03 13:08] LABS: Influenza B, PCR Not Detected (NotDetected)
[2024-04-03 13:09] LABS: D-Dimer 0.85 ug/mL (0.0-0.5)
[2024-04-03 13:10] LABS: Coronavirus 19, PCR Not Detected (NotDetected)
[2024-04-03 13:22] LABS: Procalcitonin 0.037 ng/mL (0.0-2.0)
[2024-04-03 14:40] LABS: Influenza A, PCR Detected (NotDetected)
== END 2024-04-03 15:13 | disposition home or self-care (01) ==
PROVIDERS: Physician Assistant; Emergency Provider Emergency Medicine; PCP Physician Assistant
DX: J10.1 Influenza due to other identified influenza virus with other respiratory manifestations (principal); R07.9 Chest pain, unspecified; R05.9 Cough, unspecified; R53.81 Other malaise
CPT/HCPCS: 80053; 83735; 84145; 85025; 85378; 87636; 93005; 96361; 96374; 99283; J2405; J7030

== ENCOUNTER 2024-04-11 16:27 | Emergency (ER) | payer OTHER, SELFPAY ==
[2024-04-11 16:40] VITALS: BP 111/66; PULSE 87; RESP 16; TEMP 36.7; O2SAT 99; BMI 40.8
[2024-04-11 17:30] LABS: Basophils % 0.6 % (0.1-2.0); Eosinophils # 0.1 K/mm3 (0.0-0.4); Eosinophils % 1.7 % (0.1-12.0); Hematocrit 41.7 % (37.0-47.0); Hemoglobin 13.9 g/dL (12.2-16.2); Lymphocytes # 1.5 K/mm3 (0.7-4.5); Lymphocytes % 20.8 % (10-50); Mean Corpuscular HGB Conc 33.3 g/dL (31.8-35.4); Mean Corpuscular Hemoglobin 28.5 pg (27.0-31.2); Mean Corpuscular Volume 85.6 fl (81-99); Mean Platelet Volume 11.8 fl (7.4-10.4); Monocytes # 0.6 K/mm3 (0.1-1.0); Monocytes % 7.8 % (1.7-9.3); Neutrophils # 4.9 K/mm3 (1.8-7.8); Neutrophils % 68.8 % (37.0-80.0); Platelet Count 129 K/mm3 (142-424); Red Blood Count 4.87 M/mm3 (4.20-5.40); Red Cell Distribution Width 12.8 % (11.5-17.5); White Blood Count 7.1 K/mm3 (4.8-10.8)
--- NOTE | 2024-04-11 17:38 | ED_ITS ---
Discharge Plan Disposition Patient Disposition: Home, Self-Care Prescriptions Prescriptions: No Action atomoxetine 25 mg capsule See Rx Instructions .ROUTE .COMPLEX Qty: 30 0RF Dose Instruction: TAKE 1 CAPSULE BY MOUTH EVERY DAY Rx Instructions: TAKE 1 CAPSULE BY MOUTH EVERY DAY amoxicillin-pot clavulanate 875-125 mg tablet 1 tab PO BID Qty: 20 0RF ondansetron 4 mg tablet,disintegrating 4 mg PO QID PRN (Reason: nausea and vomiting) Qty: 10 0RF ondansetron 4 mg tablet,disintegrating 4 mg PO Q6H PRN (Reason: nausea and vomiting) Qty: 10 0RF Referrals Follow up/Referrals: Noliva Steele PA [Primary Care Provider] - See instructions Activity Restrictions/Add. Instructions Additional Instructions/Restrictions: Follow-up with your primary INVENTORY CONTROL/SHIPPING RECEIVING for this visit to the emergency department. Today hCG just over 27,000, small subchorionic hemorrhage on ultrasound with closed cervix. Call your family doctor to establish care for this visit to the emergency department and schedule follow-up within 48 hours to ensure improvement. If you have any worsening of your condition or any other concerning signs or symptoms, return to the emergency department or your primary care doctor for further evaluation. Clinical Impressions Clinical Impression: Vaginal bleeding affecting early , Subchorionic hemorrhage Print Language Print Language: Hebrew Discharge ED Provider: Aman Pereira General Adult HPI General Chief complaint: Vaginal Bleeding Stated complaint: 11 weeks with bleeding,cramping Time Seen by Provider: 04/11/24 16:39 History of Present Illness HPI narrative: Please note that above description of symptoms, in this electronic medical record under categorization of recalled from ER triage doctor by RN are reflective of an initial nursing assessment, however, is not reflective of my full history and physical exam that was personally taken and clarified. Consequentially, this preceding description of symptoms, which may include the patient's categorized chief complaint in the EMR, do not reflect my personal clinical impression, and the ultimate description of history of present illness and patient stated complaints should be deferred to this section of the note. Unless stated otherwise or congruent with this section of the note, additional signs, symptoms, or incongruence should be interpreted as inaccurate with my clinical impression. Related Data Previous Rx's ?Medication ?Instructions ?Recorded atomoxetine 25 mg capsule See Rx Instructions .Route 03/29/22 .COMPLEX #30 caps amoxicillin 875 mg-potassium 1 tab PO BID #20 tabs 12/18/23 clavulanate 125 mg tablet ondansetron 4 mg disintegrating 4 mg PO QID PRN nausea and 12/18/23 tablet vomiting #10 tabs ondansetron 4 mg disintegrating 4 mg PO Q6H PRN nausea and 02/03/24 tablet vomiting #10 tabs Allergies Allergy/AdvReac Type Severity Reaction Status Date / Time Sulfa (Sulfonamide Allergy Mild Verified 01/18/22 10:51 Antibiotics) (SULFA (SULFONAMIDE ANTIBIOTICS)) sulfamethoxazole (From Allergy Unknown Verified 01/18/22 10:51 BACTRIM) trimethoprim (From BACTRIM) Allergy Unknown Verified 01/18/22 10:51 PFSH PFSH Disclaimer: The information contained in this section may have been updated after the patient was seen, as this information can be updated by other users. Medical History (Updated 04/11/24 @ 18:48 by Aman Pereira MD) Attention Deficit Hyperactivity Disorder (ADHD) Social History Smoking Status: Never smoker alcohol intake: never substance use type: denies use current occupational status: employed Travel in the last 8 weeks: None Have you lived/traveled outside US in past 30 days?: No Contact w/someone who lives/traveled outside US past 30 days?: No Exposure to someone with infectious disease in past 14 days?: No Do you have a fever (greater than 100.4 F or 38 C)?: No Have you tested positive for COVID-19: No Exposed to someone with COVID-19 in past 14 days?: No Do you have a sore throat?: No Do you have a cough?: No Do you have any weakness?: No Do you have any diarrhea?: No Are you experiencing any unusual bleeding?: No Do you have any muscle aches/pain?: No Do you have any abdominal pain?: No Are you experiencing loss of taste or smell?: No Other Medical History Have you received the Flu Vaccine for this season: No Have you received the Pneumonia Vaccine: No ROS Obtained: Yes All systems reviewed & no additional complaints except as documented Physical Exam General General appearance: alert Head Head exam: atraumatic and normocephalic Eye Eye exam: Present normal appearance, PERRL and EOMI Neck Neck exam: Present normal inspection, full ROM and trachea midline Respiratory Respiratory exam: Absent respiratory distress, wheezes, stridor, accessory muscle use or prolonged expiratory phase Cardiovascular Cardiovascular exam: Present other (Pulses equal symmetric in upper and lower extremities) Abdominal Exam Abdominal exam: Present soft; Absent distention, tenderness or pulsatile mass Extremities Exam Extremities exam: Absent edema Neurological Exam Neurological exam: Present alert, oriented X3 and CN II-XII intact; Absent motor sensory deficit Skin Skin exam: Present warm and dry; Absent diaphoresis or erythema Medical Decision Making Medical Records Medical records reviewed: Yes I reviewed the patient's medical records. Screening: Per USPSTF and CDC recommendations, given the prevalence of disease in our region, it is our hospital?s policy to screen for HIV and viral Hepatitis for all patients aged 18 and over and those with ongoing risk factors. Tuan Inquiry Pt receiving controlled substance: No Tuan was queried for this patient: No Vital Signs: 04/11/24 16:40 04/11/24 18:07 04/11/24 18:15 Temperature 98.1 F Temperature Source Oral Pulse Rate 81 68 Pulse Rate [Right] 87 Respiratory Rate 16 Blood Pressure 107/67 L 99/63 L Blood Pressure [Right Arm] 111/66 Blood Pressure Mean 79 77 Blood Pressure Mean [Right Arm] 81 Blood Pressure Source [Right Arm] Automatic Cuff 02 Sat by Pulse Oximetry 99 98 97 Oxygen Delivery Method Room Air Room Air Room Air 04/11/24 18:30 04/11/24 18:46 Temperature Temperature Source Pulse Rate 63 71 Pulse Rate [Right] Respiratory Rate Blood Pressure 115/65 92/64 L Blood Pressure [Right Arm] Blood Pressure Mean 73 72 Blood Pressure Mean [Right Arm] Blood Pressure Source [Right Arm] 02 Sat by Pulse Oximetry 98 98 Oxygen Delivery Method Room Air Room Air Lab Data Lab Results 04/11/24 17:15: WBC 7.1, RBC 4.87, Hgb 13.9, Hct 41.7, MCV 85.6, MCH 28.5, MCHC 33.3, RDW 12.8, Plt Count 129 L, MPV 11.8 H, Neut % (Auto) 68.8, Lymph % (Auto) 20.8, [place] % (Auto) 7.8, Eos % (Auto) 1.7, Baso % (Auto) 0.6, Neut # (Auto) 4.9, Lymph # (Auto) 1.5, [place] # (Auto) 0.6, Eos # (Auto) 0.1, Baso # (Auto) 0.0, Sodium 137, Potassium 3.4 L, Chloride 107, Carbon Dioxide 21 L, Anion Gap 12.4, BUN 6 L, Creatinine 0.60, Estimated GFR 123, Est GFR ( Amer) 149, Glucose 103 H, Calcium 9.7, Total Bilirubin 0.7, AST 34, ALT 32, Alkaline Phosphatase 54, Total Protein 7.2, Albumin 4.2, Globulin 3.0, Albumin/Globulin Ratio 1.4, H CG, Quant 19764 H, Blood Type A Positive, Antibody Screen Negative 04/11/24 19:40: Urine Color Yellow, Urine Appearance Clear, Urine pH 6.5, Ur Specific [place] >= 1.030, Urine Protein Negative, Urine Glucose (UA) Negative, Urine Ketones Negative, Urine Blood Trace-l, Urine Nitrate Negative, Urine Bilirubin Negative, Urine Urobilinogen 2.0, Ur Leukocyte Esterase Negative 04/11/24 17:15 04/11/24 17:15 Orders (Tests/Meds): ORDERS Category Date Time Status Type and Screen Stat BBK 04/11/24 17:15 Completed POCUS Point of Care (ER Only) Stat Exams 04/11/24 17:02 Completed Complete Blood Count Auto Diff Stat Lab 04/11/24 17:15 Completed Comprehensive Metabolic Panel Stat Lab 04/11/24 17:15 Completed HCG,Quantitative Stat Lab 04/11/24 17:15 Completed HIV Combo Stat Lab 04/11/24 17:57 Ordered Hep C Ab with Reflex to RNA Stat Lab 04/11/24 17:57 Ordered Urinalysis and Microscopic Stat Lab 04/11/24 19:40 Results Medical Decision Narrative: This is a 23-year-old female currently 11 weeks presenting with vaginal bleeding. She states that just before arrival, she had some spotting. Placed a pad, she saturated 1 pad in about 4 hours and had a small blood clot, so came in for further evaluation. Has lower abdominal cramping that does not radiate. No fevers or chills or any other complaints. History was obtained via conversation with patient. On arrival, patient hemodynamically stable, alert, oriented x4, appropriate, GCS 15, moving all extremities spontaneously, pupils equal and reactive to light. Full physical exam performed and significant for well- appearing female no acute distress. Abdomen soft, nontender, nondistended. Pelvic exam deferred given bedside ultrasound findings. Differential includes threatened , inevitable , vaginal laceration, among others. Workup independently interpreted and significant for nonactionable CBC. Patient a positive. Nonactionable chemistry. hCG 27,000. Urinalysis negative. On independent interpretation of imaging, patient has viable IUP with heart rate around 160. Good movements. Has a small amount of subchorionic hemorrhage. Cervix closed at less than 3 mm on bedside ultrasound.On reevaluation, patient still resting comfortably. Pelvic exam was offered and recommended, patient opting out and would like to follow-up with her primary INVENTORY CONTROL/SHIPPING RECEIVING instead of doing pelvic exam here today, I feel this is reasonable. Given patient presentation, workup, history, this most likely represents small subchorionic hemorrhage in the setting of early . Because patient at baseline without signs or symptoms of clinical decompensation, deemed appropriate for discharge. Results were relayed to patient who voiced understanding and were agreeable to outpatient management and follow up. I discussed my clinical impression with patient and answered all questions. At this time, the evidence for any other entities in the differential is insufficient to warrant any further testing or ED observation. This was explained as well. Advisory was given that persistent or worsening symptoms require further evaluation. I confirmed the understanding of this discussion. Horticulture Professor disclaimer Much of this encounter note is an electronic store planner spoken language to printed text. Electronic store planner of the spoken language may permit errors. Although I have reviewed the note, some errors may still exist. Procedures Limited Ultrasound Indication:: Limited OB ultrasound Indication: , vaginal bleeding Identified structures: -Uterus -Left adnexa -Right adnexa -Pouch of [place] Findings: Uterus: Definitive IUP with FHR 160 Right adnexa: -Normal Left adnexa: -Normal Cul de sac: -free fluid absent Impression: -IUP: Present with fhr 160 -Ectopic : Absent -Free fluid: Absent -Small subchorionic hemorrhage less than 10% Images were saved to permanent archive The study was technically adequate [facility] Transabdominal: [id number] This study was performed by me, and I personally interpreted all images/videos. Based on my clinical judgement, these images were adequate and did not necessitate further imaging Critical Care Critical Care Time Critical Care Time: No
[2024-04-11 17:48] LABS: Alanine Aminotransferase 32 U/L (12-78); Albumin Level 4.2 g/dl (3.5-5.0); Albumin/Globulin Ratio 1.4 (1.1-1.8); Alkaline Phosphatase 54 U/L (38-126); Anion Gap 12.4 mEq/L (5-15); Aspartate Amino Transferase 34 U/L (14-36); Bilirubin,Total 0.7 mg/dl (0.2-1.3); Blood Urea Nitrogen 6 mg/dl (7-17); Calcium 9.7 mg/dl (8.4-10.2); Carbon Dioxide 21 mmol/L (22.0-30.0); Chloride 107 mmol/L (98-107); Estimated Glomerular Filt Rate 123 ml/min (>60); GFR (African American) 149 ML/MIN (>60); Glucose 103 mg/dl (74-100); Potassium 3.4 mmoL/L (3.5-5.1); Sodium 137 mmol/L (136-145); Total Protein,Serum 7.2 g/dl (6.3-8.2)
[2024-04-11 18:07] VITALS: BP 107/67; PULSE 81; O2SAT 98
--- NOTE | 2024-04-11 18:08 | PC.NURSE ---
pt given a warm blanket and bed positioned for pts comfort. Friend at BS. Call light within reach
[2024-04-11 18:15] VITALS: BP 99/63; PULSE 68; O2SAT 97
[2024-04-11 18:30] VITALS: BP 115/65; PULSE 63; O2SAT 98
[2024-04-11 18:46] VITALS: BP 92/64; PULSE 71; O2SAT 98
[2024-04-11 18:52] LABS: HCG,Quantitative 27626 mIU/ml (0-5.42)
[2024-04-11 19:44] LABS: Microscopic, Urine URINE MICROSCOPIC (MICROSCOPIC)
[2024-04-11 19:58] LABS: Appearance,Urine CLEAR (Clear); Bilirubin,Urine Negative (Negative); Blood, Urine TRACE-L (Negative); Color,Urine YELLOW (Yellow); Glucose,Urine (UA) Negative (Negative); Ketones,Urine Negative (Negative); Leukocyte Esterase,Urine Negative (Negative); Nitrate,Urine Negative (Negative); PH,Urine 6.5 (5.0-8.5); Protein,Urine Negative (Negative); Specific Gravity, Urine >= 1.030 (1.005-1.030)
[2024-04-11 20:13] VITALS: BP 111/63; PULSE 75; RESP 18; TEMP 36.7; O2SAT 98
[2024-04-11 20:22] LABS: RBC,Urine Occasional #/hpf (0-3)
[2024-04-11 20:23] LABS: Amorphous Sediment,Urine 4+ /lpf; Bacteria,Urine 1+ /lpf; Squamous Epithelial Cell,Urine TNTC #/hpf (0-5)
== END 2024-04-11 20:14 | disposition home or self-care (01) ==
PROVIDERS: Emergency Provider Emergency Medicine; PCP Physician Assistant
DX: O46.8X9 Other antepartum hemorrhage, unspecified trimester (principal); Z3A.11 11 weeks gestation of pregnancy
CPT/HCPCS: 80053; 81001; 84702; 85025; 86850; 99283

== ENCOUNTER 2024-06-15 00:22 | Outpatient (CLI) | payer OTHER, SELFPAY ==
[2024-06-15 00:31] VITALS: BMI 36.8
[2024-06-15 00:41] LABS: Microscopic, Urine URINE MICROSCOPIC (MICROSCOPIC)
[2024-06-15 00:44] VITALS: BP 131/75; PULSE 77; RESP 17; TEMP 36.7; O2SAT 96; BMI 36.8
[2024-06-15 00:46] LABS: Appearance,Urine Slightly Cloudy (Clear); Color,Urine Dark Yellow (Yellow); Glucose,Urine (UA) Negative (Negative); Ketones,Urine 1+ (Negative); Protein,Urine 1+ (Negative); Specific Gravity, Urine 1.015 (1.005-1.030)
[2024-06-15 00:47] LABS: Bilirubin,Urine Negative (Negative); Blood, Urine Negative (Negative); Leukocyte Esterase,Urine Negative (Negative); Nitrate,Urine POSITIVE (Negative)
[2024-06-15 00:54] LABS: Amphetamine/Metha Screen,Urine Negative ng/ml (<1000); Benzodiazepines Screen,Urine Negative ng/ml (<200)
[2024-06-15 00:55] LABS: Barbiturates Screen,Urine Negative ng/ml (<200)
[2024-06-15 00:56] LABS: Cannabinoid Screen,Urine Negative ng/ml (<50); Methadone Screen,Urine Negative ng/ml (<300)
[2024-06-15 00:57] LABS: Cocaine Screen,Urine Negative ng/ml (<300)
[2024-06-15 00:58] LABS: Bacteria,Urine 3+ /lpf; Opiate Screen,Urine Negative ng/ml (<300); Phencyclidine Screen,Urine Negative ng/ml (<25); WBC,Urine Occasional #/hpf (0-3)
== END 2024-06-15 01:10 | disposition home or self-care (01) ==
LOC: OBOUT 00:25 → OB 00:26
PROVIDERS: PCP Physician Assistant; Visit Provider Nurse Practitioner Obstetrics & Gynecology
DX: O36.8120 Decreased fetal movements, second trimester, not applicable or unspecified (principal); Z3A.20 20 weeks gestation of pregnancy
CPT/HCPCS: 80307; 81001; 87086; 87088; 87186; G0463

== ENCOUNTER 2024-09-28 21:22 | Emergency (ER) | payer OTHER, SELFPAY ==
[2024-09-28 21:30] VITALS: BP 130/88; PULSE 92; RESP 18; TEMP 36.9; O2SAT 100; BMI 40.3
--- NOTE | 2024-09-28 21:36 | ECG_ITS ---
APPROVED REPORT Exam: Resting ECG HR:96 bpm ECG Measurements Heart Rate 96 AXES QRSd 96 QRS 85 QT 365 T -32 QTc 419 Conclusion non-diagnostic quality Electronically signed by : LILIA LEONG, 09/30/2024 06:31:32
--- OUTSIDE RECORDS SUMMARY | 2024-09-28 21:45 | XMS_ITS | Clinical Summary ---
Author Organization Healthcare Address [address] [place] [address] Care Team Providers Care Costume Seamstress Name Role Phone Unavailable Primary Care Provider Unavailabl e Allergies Active Allergy Reactions Criticality Noted Date Comments Sulfa Drugs Hives,Swelling,Unkno wn - Patient states they do not know rxn details High 08/04/2015 Medications * This document contains information received from the source organization and may not represent a complete record from that organization. medroxyPROGESTER one (Depo-Provera) 150 MG/ML injection Inject 150 mg into the muscle every 3 (three) months. Active Hospital, Clinic, or Other Facility Administered Medication Ordered Dose Route Frequency Start Date End Date Status medroxyPROGESTERone (Depo-Provera) injection syringe 150 mgIndications:Encounter for management and injection of depo-Provera 150 mg IM Once 08/15/2022 Active Active Problems No known active problems Resolved Problems Problem Noted Date Diagnosed Date Resolved Date Ganglion cyst of finger of right hand 08/04/2015 08/10/2021 Pain of hand 08/02/2015 08/10/2021 Encounters Date Type Department Care Team Description 08/11/2024 Telephone Medical Office Building Obstetrics and Gynecology [address] , [address] [place] [address] Rene Man, RN IPV Confirmation (PNC Records in [facility] - See Note) 07/10/2024 Telephone Medical Office Building Obstetrics and Gynecology [address], [address] [place] [address] Maame Mccarty APRN [facility] - Patient Message from Last 3 Months Immunizations Immunization Administration Dates Next Due Tdap 06/06/2020 Family History Medical History Relation Name Comments Diabetes Paternal Grandfather Hypertension Paternal Grandfather Lung cancer Paternal Grandmother Relation Name Status Comments Paternal Grandfather Paternal Grandmother Social History Tobacco Use Types Packs/Day Years Used Date Smoking Tobacco: Never Smokeless Tobacco: Never Alcohol Use Standard Drinks/Week Comments No 0 (1 standard drink = 0.6 oz pur e alcohol) Comments No Sex and Gender Information Value Date Recorded Sex Assigned at Not on file Legal Sex Female 6:32 PM EDT Gender Identity Not on file Sexual Orientation Not on file Last Filed Vital Signs Vital Sign Reading Time Taken Comments Blood Pressure 115/75 06/23/2020 9:31 AM EDT Pulse 66 11/13/2018 1:30 PM EDT Temperature 36.7 C (98.1 F) 11/13/2018 1:30 PM EDT Respiratory Rate - - Oxygen Saturation - - Inhaled Oxygen Concentration - - Weight 97.3 kg (214 lb 8.1 oz) 09/08/2021 8:43 A M EDT Height 160 cm (5' 3 ) 08/10/2021 9:29 AM EDT Body Mass Index 38 08/10/2021 9:29 AM EDT Plan of Treatment Health Maintenance Due Date Last Done Comments [facility]-Depression Screening 1999 [facility]-Infant/Child/Adol SDOH Screenings 1999 [facility]-Hepatitis B Vaccines (3 of 3 - 3-dose series) 12/29/2002 11/03/2002, 11/08/2001 HPV Vaccines (1 - 3-dose series) 06/06/2014 [facility]- SDOH Screenings 06/06/2017 [facility]-Adult SDOH Screenings 06/06/2017 [facility]-ZPPWO-16 Vaccine ( - season) 2023 [facility]-Influenza Vaccine (Season Ended) 2024 [facility]-Pap Smear 03/18/2027 03/18/2024, 08/10/2021 [facility]-DTaP,Tdap,and Td Vaccines (7 - Td or Tdap) 06/06/2030 06/06/2020, 11/03/2011, 07/06/2003, Additional history exists [facility]-Zoster Vaccines (1 of 2) 06/06/2049 11/03/2011, 11/08/2001 [facility]-HIB Vaccines Completed 04/17/2002, 11/08/2001 [facility]-IPV Vaccines Completed 07/06/2003, 01/2003, 04/17/2002, Additional history exists [facility]-Varicella Vaccines Completed 11/03/2011, 2001 [facility]-Hepatitis A Vaccines Aged Out No longer eligible based on patient's age to complete this topic [facility]-Pneumococcal Vaccine: Pediatrics (0 to 5 Years) and At-Risk Patients (6 to 49 Years) Aged Out No longer eligible based on patient's age to complete this topic [facility]-Rotavirus Vaccines Aged Out No lo nger eligible based on patient's age to complete this topic Procedures Procedure Name Priority Date/Time Associated Diagnosis Comments PAP TEST - CYTOLOGY Routine 08/10/2021 11:36 AM EDT Well woman exam with routine gynecological exam from Last 3 Months or Most Recently Relevant to Health Maintenance Results * (ABNORMAL) Pap Smear (08/10/2021 11:36 AM EDT) Case Report Cytology Case: [id number] Authorizing Provider: Ta Olvera MD Collected: 08/10/2021 1136 Ordering Location: Medical Office Building Received: 08/10/2021 [facility] Obstetrics and Gynecology First Screen: Candelaria Arce Pathologist: Dary Crowe MD Specimen: ThinPrep Pap Test, Liquid-Based Cervical/Vaginal, CERVICAL/VAGINAL 08/15/2021 10:26 AM EDT [facility] Interpretation LOW GRADE SQUAMOUS INTRAEPITHELIAL LESION WITH ATYPICAL SQUAMOUS CELLS, CANNOT EXCLUDE HIGH GRADE SQUAMOUS INTRAEPITHELIAL LESION (LSIL + ASC-H), SEE COMMENT(A) 08/15/2021 10:26 AM EDT [facility] at 1026 EDT Other Findings Shift in melinda suggestive of bacterial vaginosis. 08/15/2021 10:26 AM EDT [facility] Specimen Adequacy Satisfactory for evaluation; endocervical/castillo sformation zone component present. Slide imaged by the ThinPrep Imaging system and selected 22 strong reviewed then full manual screening. 08/15/2021 10:26 AM EDT [facility] Comment Suggest colposcopy (www.asccp.org). Follow-up biopsies in women with ungraded YOMI or mild-moderate dysplasia may detect HSIL in 30-40% of patients. Consideration for colposcopy and/or HPV testing is recommended. 08/15/2021 10:26 AM EDT [facility] Cervical cytology is a screening test primarily for squamous cancers and precursors and has associated false negative and positive results. New technologies such as liquid based sampling may decrease but will not eliminate all false negative results. Regular screening and follow-up of unexplained clinical signs and symptoms are recommended to minimize false negative results. Please see the ASCCP website (www.asccp.org)fo r followup recommendations. If HPV testing was requested, correlation with the results is suggested (please call Microbiology at [phone] for results). 08/15/2021 10:26 AM EDT [facility] Menstrual Status Cyclic 08/16/19 10:26 AM EDT [facility] History of Hysterectomy Not Applicable 08/15/2021 10:26 AM EDT [facility] Contraceptive History Depo 08/15/2021 10:26 AM EDT [facility] Screening Type Routine Screen 2021 10:26 AM EDT [facility] High Risk? No 08/15/2021 10:26 AM EDT [facility] HPV Testing Requested? No HPV Testing Requested 08/15/2021 10:26 AM EDT [facility] Previous Cancer History No 08/15/2021 10:26 AM EDT [facility] Clinical Information Z01.419 - Well woman exam with routine gynecological exam [ICD-10-CM] 08/15/2021 10:26 AM EDT [facility] Last Menstrual Period 08/01/21 08/15/2021 10:26 AM EDT [facility] Swab Vaginal and cervical cytologic material / Unknown Non-blood Collection / Unknown 08/10/2021 11:36 AM EDT 08/10/2021 1:37 PM EDT Ta Olvera MD LAB CYTOLOGY ORDERABLES F inal Result [facility] [address] [place] [id number] from Last 3 Months or Most Recently Relevant to Health Maintenance Insurance [employer]
--- OUTSIDE RECORDS SUMMARY | 2024-09-28 21:45 | XMS_ITS | Encounter Summary ---
Author Organization [facility] Address [address] [place] [address] Care Team Providers Care Industrial Furnace Fabricator Name Role Phone Unavailable Primary Care Provider Unavailabl e Reason for Visit * Reason Onset Date Comments IPV Confirmation 08/11/2024 PNC Records in EP[facility] - See Note Encounter Details Date Type Department Care Team ([facility] Contact Info) Description 08/11/2024 Telephone Medical Office Building Obstetrics and Gynecology [address], [address] [place] [address] Rene Man, RN [facility] IPV Confirmation ([facility]NC Records in EPIC - See Note) Social History Tobacco Use Types Packs/Day Years Used Date Smoking Tobacco: Never Smokeless Tobacco: Never Alcohol Use Standard Drinks/Week Comments No 0 (1 standard drink = 0.6 oz pur e alcohol) Comments No Sex and Gender Information Value Date Recorded Sex Assigned at Not on file Legal Sex Female 6:32 PM EDT Gender Identity Not on file Sexual Orientation Not on file documented as of this encounter Miscellaneous Notes * Telephone Encounter - Rene Man RN - 08/11/2024 9:48 AM EDT Attempt to call the patient to confirm her IPV scheduled for tomorrow, 08/12/2024 was unsuccessful. No Answer. Voicemail left requesting the patient call back @ her convenience. Will follow-up with a [employer] message as an alternative form of communication. Review of [facility] records indicates the patient has been receiving PNC @ [facility]. PNC is summarized below: 24yo @ 28.5 weeks gestation today. complicated by second trimester bleeding @ 17.6 weeks, a previous @ 28 weeks for TTTS, BMI>40, and h/o TIMO I with Colpo. Patient desires TOLAC. She also has a h/o Melanoma, Pre- BMI: 40.46 LMP: 01/18/2024 LAVELL: 10/29/2024 US: 03/18/2024 - TVUS, Clemens IUP, CRL 14.9mm, +FHR 164, Right corpus luteum 05/27/2024 - BSUS during hospital visit (See Note); single fetus, ant placenta, low lying with poss partial previa. No visible retroplacental clot. Fetus is active with normal fluid. Labs: 03/18/2024 - Labs Maternal Blood Type: A Positive Antibody Screen: Negative RPR/VDRL: NR Rubella: Immune (1.14) Hepatitis B: Negative Hepatitis C: NR HIV: NR H&H: 13.4/41.4 Plts: 239 STI Screenings: Negative GC/Chlamydia on Pap Result UDS: Negative PAP: LSIL, Low Grade Squamous Intraepithelial Lesion, HPV+ 04/18/2024 - NIPT Negative Result, Consistent with Male Medications: PNV Delivery History: G1: 2018 Term G2: 2020 LTUI-C/S 28.5 weeks TTTS documented in this encounter Plan of Treatment Not on file documented as of this encounter Visit Diagnoses Not on filedocumented in this encounter
--- NOTE | 2024-09-28 21:54 | ECG_ITS ---
APPROVED REPORT Exam: Resting ECG HR:72 bpm ECG Measurements Heart Rate 72 AXES TX 138 P 66 QRSd 102 QRS 87 QT 374 T 18 QTc 399 Conclusion SINUS RHYTHM WITH MARKED SINUS ARRHYTHMIA BORDERLINE ECG UNCONFIRMED REPORT Electronically signed by : LILIA LEONG, 09/30/2024 06:30:54
--- NOTE | 2024-09-28 21:57 | ED_ITS ---
Discharge Plan Disposition Patient Disposition: Home, Self-Care Condition: Good Prescriptions Prescriptions: No Action multivitamin Tablet 1 tab PO DAILY Referrals Follow up/Referrals: Kristen Mauro DO [Staff Physician, ELECTRICAL SIGN WIRER HELPER] - See instructions Nolvia Steele PA [Primary Care Provider, Medical] - See instructions Activity Restrictions/Add. Instructions Additional Instructions/Restrictions: You were evaluated in the emergency department today. Your blood pressure is slightly elevated today. As we discussed, our OB recommended a 24-hour urine collection to rule out protein and follow-up this week. If you choose to follow-up with your OB, I recommend calling them tomorrow to let them know that you were seen here in the emergency department and seek their recommendations right away. Return to the emergency department for new or worsening symptoms, such as significant headache or worsening symptoms. Clinical Impressions Clinical Impression: High blood pressure affecting in third trimester, antepartum, Hand tingling, Light-headedness Stand Alone Forms Stand Alone Forms: Work/School Release Instructions Patient Instructions: DI for Dehydration -- Adult, DI for -- Discomforts and Remedies, DI for Pre-eclampsia, DI for Dizziness-Nonvertigo Print Language Print Language: Kyrgyz Discharge ED Provider: Celia Bass General Adult HPI General Chief complaint: Dizziness Stated complaint: 35 week antipartum; Dizzy; Numbness in both hands Time Seen by Provider: 09/28/24 21:49 Mode of Arrival: Ambulatory Source of Information: Patient Description of Symptoms (Recalled from ER Triage Doc. by RN): Pt presents for evaluation of dizziness, nausea/vomiting x 1 week. the last 3 days the patient has had numbness to bilateral hands. Pt states earlier today that her hands were numb to the point that she dropped a coffee pot. History of Present Illness HPI narrative: This patient is a 24-year-old female who is currently 35 weeks presenting to the emergency department for evaluation with concern for lightheadedness, nausea, vomiting, and tingling to her bilateral hands. Patient states that she thought maybe the numbness and tingling in her hands is positional, but her hands got so numb today that she dropped a coffee pot that she tried to hold. She is not currently experiencing the symptoms, as they are intermittent. She denies any other concerns or complaint such a significant headache, vision changes, neck pain, upper back pain, chest pain, or other concerns. She also denies any abdominal pain, leakage of fluid, abnormal vaginal bleeding, dysuria, urinary frequency, or other concerns. Related Data Home Medications ?Medication ?Instructions ?Recorded ?Confirmed multivitamin 1 tab PO DAILY 07/10/2407/01 Allergies Allergy/AdvReac Type Severity Reaction Status Date / Time Sulfa (Sulfonamide Allergy Mild Verified 07/10/24 10:48 Antibiotics) (SULFA (SULFONAMIDE ANTIBIOTICS)) sulfamethoxazole (From Allergy Unknown Verified 07/10/24 10:48 BACTRIM) trimethoprim (From BACTRIM) Allergy Unknown Verified 07/10/24 10:48 PFSH PFS Disclaimer: The information contained in this section may have been updated after the patient was seen, as this information can be updated by other users. Medical History Viral upper respiratory infection Attention Deficit Hyperactivity Disorder (ADHD) Social History Smoking Status: Never smoker alcohol intake: never substance use type: denies use current occupational status: employed Travel in the last 8 weeks?: None Have you lived/traveled outside US in past 30 days?: No Contact w/someone who lives/traveled outside US past 30 days?: No Exposure to someone with infectious disease in past 14 days?: No Do you have a fever (greater than 100.4 F or 38 C)?: No Have you tested positive for COVID-19?: No Exposed to someone with COVID-19 in past 14 days?: No Do you have a sore throat?: No Do you have a cough?: No Do you have any weakness?: No Do you have any diarrhea?: No Are you experiencing any unusual bleeding?: No Do you have any muscle aches/pain?: No Do you have any abdominal pain?: No Are you experiencing loss of taste or smell?: No Other Medical History Have you received the Flu Vaccine for this season: No Have you received the Pneumonia Vaccine: No ROS Obtained: Yes All systems reviewed & no additional complaints except as documented Physical Exam General General appearance: alert and in no apparent distress Head Head exam: atraumatic and normocephalic Eye Eye exam: Present normal appearance, PERRL and EOMI ENT ENT exam: Present normal exam, normal oropharynx, mucous membranes moist and normal external ear exam Neck Neck exam: Present normal inspection, full ROM and trachea midline; Absent tenderness Chest Chest inspection: Present normal inspection and symmetric chest wall rise; Absent tenderness Respiratory Respiratory exam: Present normal lung sounds bilaterally; Absent respiratory distress, wheezes, stridor or accessory muscle use Cardiovascular Cardiovascular exam: Present regular rate and normal rhythm Abdominal Exam Abdominal exam: Present soft; Absent distention, tenderness or guarding Extremities Exam Extremities exam: Present normal inspection, full ROM and normal capillary refill; Absent tenderness or edema Back Exam Back exam: Present normal inspection and full ROM; Absent tenderness Neurological Exam Neurological exam: Present alert, oriented X3, CN II-XII intact and normal gait; Absent motor sensory deficit Psychiatric Psychiatric exam: Present normal affect and normal mood Skin Skin exam: Present warm and dry Medical Decision Making Medical Records Medical records reviewed: Yes I reviewed the patient's medical records. Screening: Per USPSTF and CDC recommendations, given the prevalence of disease in our region, it is our hospital?s policy to screen for HIV and viral Hepatitis for all patients aged 18 and over and those with ongoing risk factors. Tuan Inquiry Pt receiving controlled substance: No Vital Signs: 09/28/24 21:30 09/28/24 22:15 09/28/24 22:56 Temperature 98.5 F Temperature Source Oral Pulse Rate 100 H Pulse Rate [Orthostatic Lying Right] 86 Pulse Rate [Orthostatic Sitting] 85 Pulse Rate [Orthostatic Standing] 99 H Pulse Rate [Right] 92 H Respiratory Rate 18 18 Blood Pressure 138/85 Blood Pressure [Orthostatic Lying] 140/71 Blood Pressure [Orthostatic Sitting] 138/90 Blood Pressure [Orthostatic Standing] 153/88 H Blood Pressure [Right Arm] 130/88 Blood Pressure Mean [Right Arm] 102 Blood Pressure Source Blood Pressure Source [Right Arm] Automatic Cuff Blood Pressure Position Blood Pressure Position [Right Arm] Sitting 02 Sat by Pulse Oximetry 100 100 Oxygen Delivery Method Room Air Room Air 09/28/24 23:34 Temperature 98.5 F Temperature Source Oral Pulse Rate 82 Pulse Rate [Orthostatic Lying Right] Pulse Rate [Orthostatic Sitting] Pulse Rate [Orthostatic Standing] Pulse Rate [Right] Respiratory Rate 18 Blood Pressure 139/85 Blood Pressure [Orthostatic Lying] Blood Pressure [Orthostatic Sitting] Blood Pressure [Orthostatic Standing] Blood Pressure [Right Arm] Blood Pressure Mean [Right Arm] Blood Pressure Source Automatic Cuff Blood Pressure Source [Right Arm] Blood Pressure Position Sitting Blood Pressure Position [Right Arm] 02 Sat by Pulse Oximetry Oxygen Delivery Method Room Air Lab Data Lab results reviewed: Yes I reviewed the patient's lab results. Lab Results 09/28/24 21:45: WBC 8.4, RBC 4.08 L, Hgb 10.5 L, Hct 32.7 L, MCV 80.1 L, MCH 25.7 L, MCHC 32.1, RDW 13.5, Plt Count 182, MPV 12.7 H, Neut % (Auto) 67.2, Lymph % (Auto) 18.3, [place] % (Auto) 10.5 H, Eos % (Auto) 2.3, Baso % (Auto) 0.7, Neut # (Auto) 5.6, Lymph # (Auto) 1.5, [place] # (Auto) 0.9, Eos # (Auto) 0.2, Baso # (Auto) 0.1, PT 10.6, INR 0.95, Sodium 133 L, Potassium 3.5, Chloride 109 H, C arbon Dioxide 21 L, Anion Gap 6.5, BUN 3 L, Creatinine 0.50 L, Estimated Creat Clear 289, Estimated GFR 150, Est GFR ( Amer) 182, Glucose 101 H, Calcium 9.4, Phosphorus 3.4, Magnesium 1.7, Total Bilirubin 0.5, AST 25, ALT 13, A lkaline Phosphatase 179 H, Total Protein 6.6, Albumin 3.3 L, Globulin 3.3 H, A lbumin/Globulin Ratio 1.0 L, TSH 3.42, Thyroxine (T4) 10.7 09/28/24 22:34: Urine Color Yellow, Urine Appearance Sl cloudy, Urine pH 6.0, Ur Specific [place] 1.015, Urine Protein Negative, Urine Glucose (UA) Negative, Urine Ketones Negative, Urine Blood Negative, Urine Nitrate Negative, Urine Bilirubin Negative, Urine Urobilinogen 2.0, Ur Leukocyte Esterase Trace, Urine RBC 10-20, Urine WBC 5-10, Ur Squamous Epith Cells 50-100, Urine Bacteria 3+, Urine Mucus 1+, Urine Yeast 1+ 09/28/24 21:45 09/28/24 21:45 Orders (Tests/Meds): ED MEDICATIONS Discontinued Medications Generic Name Dose Route Start Last Admin Trade Name Freq PRN Reason Stop Dose Admin Lactated Ringer's 1,000 mls @ 999 mls/hr 09/28/24 21:54 09/28/24 22:01 Lactated Ringer's 1000 Ml Bag IV 09/28/24 22:54 999 mls/hr .Q1H1M ONE Administration ORDERS Category Date Time Status 24 hour urine for protein [Total Protein, UR. 24hr] Lab 09/28/24 23:29 Ordered Stat Complete Blood Count Auto Diff Stat Lab 09/28/24 21:45 Completed Comprehensive Metabolic Panel Stat Lab 09/28/24 21:45 Completed INR [Prothrombin Time INR] Stat Lab 09/28/24 21:45 Completed MAG [Magnesium] Stat Lab 09/28/24 21:45 Completed PHOS [Phosphorous] Stat Lab 09/28/24 21:45 Completed T4 (Thyroxine) Stat Lab 09/28/24 21:45 Completed TSH [Thyroid Stimulating Hormone] Stat Lab 09/28/24 21:45 Completed UA [Urinalysis and Microscopic] Stat Lab 09/28/24 22:34 Completed Urine Culture Stat Micro 09/28/24 22:34 Received ECG Data Tracing #1: I reviewed this ECG and interpreted as documented below: Normal sinus rhythm with sinus arrhythmia with a ventricular to [address] changes concerning for ischemia. Normal intervals ECG initial impression date: 09/29/24 ECG initial impression time: 22:11 Medical Decision Narrative: In summary, this patient is a 24-year-old female who is 35 weeks presenting to the Emergency Department for evaluation of lightheadedness, nausea, vomiting, bilateral hand tingling. Differential diagnoses considered include but are not limited to preeclampsia, dehydration, electrolyte derangements, anxiety, panic attack, dysrhythmia, carpal tunnel. Ruling out the most morbid conditions drove assessment. On exam, the patient is well-appearing sitting upright in no acute distress and is not currently experiencing symptoms at this time. She states that they are intermittent. Vitals are reassuring on cardiac telemetry with exception of mild elevation of blood pressure with systolics ranging from 130s to 150s. She does not have any significant headache. Lab evaluation was obtained that demonstrated mild anemia on CBC. No significant leukocytosis noted. Chemistry demonstrates mild hyponatremia, mild hyperchloremia, mildly low CO2. Urinalysis is not concerning for proteinuria. Platelet count, liver enzymes, workup otherwise reassuring. Her urinalysis is grossly contaminated with 50-100 squamous cells. I feel I cannot make any inferences about UTI based on this, but she denies any urinary symptoms. Ultimately given her elevated blood pressures in the setting of third trimester , I called and had an interactive discussion with Dr. Mauro with OB. She recommended 24-hour urine collection and follow-up closely in OB clinic on Sunday, as she may need to be delivered. Patient states that she actually follows with [facility] now, so advised that she can either follow-up with her OB as recommended or she can choose to call them and let them know and see what their recommendations are. Ultimately, she is appropriate for discharge home with very close OB follow-up and strict return precautions such as significant headaches, decreased movement, or other concerns. She was discharged with her all questions were answered Critical Care Critical Care Time Critical Care Time: No
[2024-09-28] MEDS: LACTATED RINGERS 1000ML 1,000 ML 999 ML IV (22:01)
[2024-09-28 22:14] LABS: Alanine Aminotransferase 13 U/L (12-78); Albumin Level 3.3 g/dl (3.5-5.0); Alkaline Phosphatase 179 U/L (38-126); Anion Gap 6.5 mEq/L (5-15); Aspartate Amino Transferase 25 U/L (14-36); Bilirubin,Total 0.5 mg/dl (0.2-1.3); Blood Urea Nitrogen 3 mg/dl (7-17); Calcium 9.4 mg/dl (8.4-10.2); Carbon Dioxide 21 mmol/L (22.0-30.0); Chloride 109 mmol/L (98-107); Creatinine Clearance Estimated 289 mL/min (50-200); Estimated Glomerular Filt Rate 150 ml/min (>60); GFR (African American) 182 ML/MIN (>60); Globulin 3.3 g/dL (1.3-3.2); Glucose 101 mg/dl (74-100); Magnesium 1.7 mg/dl (1.6-2.3); Phosphorous 3.4 mg/dl (2.5-4.5); Potassium 3.5 mmoL/L (3.5-5.1); Sodium 133 mmol/L (136-145); Total Protein,Serum 6.6 g/dl (6.3-8.2)
[2024-09-28 22:15] VITALS: BP 138/90; BP 140/71; BP 153/88; PULSE 85; PULSE 86; PULSE 99
[2024-09-28 22:18] LABS: Basophils # 0.1 K/mm3 (0-0.2); Basophils % 0.7 % (0.1-2.0); Eosinophils # 0.2 Kmm3 (0.0-0.4); Eosinophils % 2.3 % (0.1-12.0); Hematocrit 32.7 % (37.0-47.0); Hemoglobin 10.5 g/dL (12.2-16.2); Immature Granulocytes # 0.08 10^3uL; Lymphocytes # 1.5 K/mm3 (0.7-4.5); Lymphocytes % 18.3 % (10-50); Mean Corpuscular HGB Conc 32.1 g/dL (31.8-35.4); Mean Corpuscular Hemoglobin 25.7 pg (27.0-31.2); Mean Corpuscular Volume 80.1 fl (81-99); Mean Platelet Volume 12.7 fl (7.4-10.4); Monocytes # 0.9 K/mm3 (0.1-1.0); Monocytes % 10.5 % (1.7-9.3); Neutrophils # 5.6 K/mm3 (1.8-7.8); Neutrophils % 67.2 % (37.0-80.0); Nucleated Red Blood Cells # 0 10^3/uL; Nucleated Red Blood Cells % 0 %; Platelet Count 182 K/mm3 (142-424); Red Blood Count 4.08 M/mm3 (4.20-5.40); Red Cell Distribution Width 13.5 % (11.5-17.5); Red Cell Distribution Width-SD 39.2 fL; White Blood Count 8.4 K/mm3 (4.8-10.8)
[2024-09-28 22:21] LABS: INR 0.95 (0.9-1.1); Prothrombin Time 10.6 seconds (10.1-12.5)
[2024-09-28 22:30] LABS: T4 (Thyroxine) 10.7 ug/dl (5.53-11.0)
[2024-09-28 22:38] LABS: Microscopic, Urine URINE MICROSCOPIC (MICROSCOPIC)
[2024-09-28 22:45] LABS: Appearance,Urine SL CLOUDY (Clear); Bilirubin,Urine Negative (Negative); Blood, Urine Negative (Negative); Color,Urine YELLOW (Yellow); Glucose,Urine (UA) Negative (Negative); Ketones,Urine Negative (Negative); Leukocyte Esterase,Urine TRACE (Negative); Nitrate,Urine Negative (Negative); Protein,Urine Negative (Negative); Specific Gravity, Urine 1.015 (1.005-1.030)
[2024-09-28 22:54] LABS: Thyroid Stimulating Hormone 3.42 uIU/mL (0.465-4.68)
[2024-09-28 22:56] VITALS: BP 138/85; PULSE 100; RESP 18; O2SAT 100
[2024-09-28 22:58] LABS: Bacteria,Urine 3+ /lpf; Mucus,Urine 1+ /lpf; Squamous Epithelial Cell,Urine 50-100 #/hpf (0-5); Yeast,Urine 1+ /lpf
[2024-09-28 23:34] VITALS: BP 139/85; PULSE 82; RESP 18; TEMP 36.9; O2SAT 99
--- NOTE | 2024-09-28 23:35 | PC.NURSE ---
pt discharge pending 24 hour urine jug delivery
[2024-09-29 23:31] LABS: Total Volume,Urine 1700 mL (600-1600)
[2024-09-29 23:40] LABS: Total Protein 24 Hour,Urine 204 mg/24 hr (40-90)
== END 2024-09-29 | disposition home or self-care (01) ==
PROVIDERS: Emergency Provider Emergency Medicine; PCP Physician Assistant
DX: O16.3 Unspecified maternal hypertension, third trimester (principal); I49.9 Cardiac arrhythmia, unspecified; R20.2 Paresthesia of skin; R42 Dizziness and giddiness; Z3A.35 35 weeks gestation of pregnancy
CPT/HCPCS: 80053; 81001; 81050; 83735; 84100; 84156; 84436; 84443; 85025; 85610; 87086; 93005; 96360; 99284; J7120

== ENCOUNTER 2024-12-28 18:23 | Emergency (ER) | payer OTHER, SELFPAY ==
--- OUTSIDE RECORDS SUMMARY | 2024-11-06 11:30 | XMS_ITS | Encounter Summary ---
Author Organization [facility] ystem Address [address] [place] [address] Care Team Providers Care Cytology Technologist Name Role Phone Nolvia Steele Primary Care Provider [phone] Reason for Visit * Reason Comments Care Encounter Details Date Type Department Care Team (Late st Contact Info) Description 11/06/2024 11:30 AM EDT Visit [facility] OBGYN [address] [place] [address] Onelia Arzate, ENVIRONMENTAL ENGINEER SCIENTIST [address] [place] [address] follow-up (Primary Dx) Social History Tobacco Use Types Packs/Day Years Used Date Smoking Tobacco: Never Passive Smoke Exposure: Never Smokeless Tobacco: Never Alcohol Use Standard Drinks/Week Comments Not Currently 0 (1 standard drink = 0.6 oz pur e alcohol) [facility] Utilities Answer Date Recorded In the past 12 months has [employer], gas, oil, or water [employer] threatened to shut off services in your home? No 10/22/2024 AUDIT-C Answer Date Recorded Q1: How often do you have a drink containing alcohol? Never 10/22/2024 Q2: How many drinks containi ng alcohol do you have on a typical day when you are drinking? Patient does not drink Q3: How often do you have si x or more drinks on one occasion? Never 10/22/2024 Overall Financial Resource Strain (CARDIA) Answe r Date Recorded How hard is it for you to pa y for the very basics like food, housing, medical care, and heating? Not hard at all 10/22/2024 [facility] - Occupational Stress Questionnaire Answer Date Recorded Do you feel stress - tense, restless, nervous, or anxious, or unable to sleep at night because your mind is troubled all the time - these days? Not at all 10/22/2024 Exercise Vital Sign Answer Date Recorde d On average, how many days pe r week do you engage in moderate to strenuous exercise (like a brisk walk)? 7 days 10/22/2024 On average, how many minutes do you engage in exercise at this level? 60 min 10/22/2024 Hunger Vital Sign Answer Date Recorded Within the past 12 months, y ou worried that your food would run out before you got the money to buy more. Never true 10/23/19 25 Within the past 12 months, t he food you bought just didn't last and you didn't have money to get more. Never true 10/22/2024 [facility]ARE - Transportation Answer Date Re corded In the past 12 months, has l ack of transportation kept you from medical appointments or from getting medications? No 10/07 In the past 12 months, has l ack of transportation kept you from meetings, work, or from getting things needed for daily living? No 10/22/2024 [place] Depression Scale Answer Date Recorded [place] Depression Scale Total 0 11/06/2024 The thought of harming myself has occurred to me . Never 11/06/2024 Abuse Screen Answer Date Recorded Feels Unsafe at Home or Work/School no 10/22/2024 Feels Threatened by Someone no 10/07 Does Anyone Try to Keep You From Having Contact with Others or Doing Things Outside Your Home? no 10/22/2024 Physical Signs of Abuse Present no 10/22/2024 Housing Stability Answer Date Recorded Current Living Arrangements home 10/07 Potentially Unsafe Housing Conditions none 10/22/2024 Family and Community Support Answer Jose e Recorded If for any reason you need h elp with day-to-day activities such as bathing, preparing meals, shopping, managing finances, etc., do you get the help you need? I get all the help I need 10/22/2024 How often do you feel lonely or isolated from those around you? Never 10/22/2024 Employment Answer Date Recorded Do you want help finding or keeping work or a job? I do not need or want help 10/22/2024 Disabilities Answer Date Recorded Difficulty Concentrating, Remembering or Making Decisions no 10/22/2024 Difficulty Managing Errands Independently no 10/22/2024 Education Answer Date Recorded Do you want help with school or training? For example, starting or completing job training or getting a high school diploma, GED or equivalent No 10/22/2024 Preferred Language Guatemalan 10/22/2024 PHQ-2 Answer Date Recorded Patient Health Questionnaire-2 Score 0 10/22/2024 Comments No Sex and Gender Information Value Date Recorded Sex Assigned at Female 08/29/2024 11:19 AM EDT Legal Sex Female 10:09 AM EDT Gender Identity Not on file Sexual Orientation Not on file documented as of this encounter Last Filed Vital Signs Vital Sign Reading Time Taken Comments Blood Pressure 118/80 11/06/2024 11:43 AM EDT Pulse - - Temperature - - Respiratory Rate - - Oxygen Saturation - - Inhaled Oxygen Concentration - - Weight 95.3 kg (210 lb) 11/06/2024 11:43 AM EDT Height 160 cm (5' 2.99 ) 11/06/2024 11:43 AM EDT Body Mass Index 37.21 11/06/2024 11:43 AM EDT documented in this encounter Progress Notes * Onelia Arzate, ENVIRONMENTAL ENGINEER SCIENTIST - 11/06/2024 11:30 AM EDT Images from the original note were not included. Chief Complaint Patient presents with Care Visit Luis Francisco is a 24 y.o. who presents today for a 2 week(s) check. C/S: no , Low Transverse Information for the patient's : Xiang Weaver [[id number]] 10/22/[birth year]24 male Xiang Weaver 3805 g (8 lb 6.2 oz) Gestational Age: 39w0d Baby Discharged with Mom Delivering MD: Victoria Muñoz MD. complications: no known issues Patient reports her incision is clean, dry, intact. Patient describes vaginal bleeding as light. She is bottle feeding. She would like to discuss the following complaints today: none. She desires to discuss Depo provera for contraception. Patient denies concerns for depression/anxiety. Patient denies suicidal or homicidal ideation. Her depression screening questionnaire: 0. No treatment is indicated The additional following portions of the patient's history were reviewed and updated as appropriate: allergies and current medications. Review of Systems Constitutional: Negative. Respiratory: Negative. Cardiovascular: Negative. Gastrointestinal: Negative. Genitourinary: Negative. Psychiatric/Behavioral: Negative. I have reviewed and agree with the HPI, ROS, and historical information as entered above. Onelia Vega APRN Objective BP 118/80 Ht 160 cm (62.99 ) Wt 95.3 kg (210 lb) LMP 01/18/2024 No BMI 37.21 kg/m?? Physical Exam Constitutional: Appearance: Normal appearance. Pulmonary: Effort: Pulmonary effort is normal. Abdominal: Palpations: Abdomen is soft. Comments: Incision healing well Neurological: Mental Status: She is alert. Assessment and Plan Problem List Items Addressed This Visit None Visit Diagnoses follow-up - Primary S/p , 2 week(s) . Doing well. Continued pelvic rest with a return to driving and light physical activity. Baby doing well. Bottlefeeding going well. No si/sx of depression Contraception: contraceptive methods: Depo-Provera injections next visit. Return in about 4 weeks (around 12/04/2024) for 6 week PP ADAM. Onelia Arzate APRN 11/06/2024 documented in this encounter Plan of Treatment Not on file documented as of this encounter Visit Diagnoses Diagnosis follow-up- Primary Routine follow-up documented in this encounter Care Teams Cytology Technologist Relationship Specialty Start Date End Date Nolvia Steele PA [address] [place] [address] PCP - General Physician Money Counter 02/18/24 documented as of this encounter
[2024-12-28] VITALS (9 sets, daily range): BP systolic 109–128; BP diastolic 70–75; PULSE 95–142; RESP 12–20; TEMP 36.8–37.9; O2SAT 96–100; BMI 37.2
--- OUTSIDE RECORDS SUMMARY | 2024-12-28 18:32 | XMS_ITS | Encounter Summary ---
Author Organization [facility] ystem Address [address] [place] [address] Care Team Providers Care Canary Raiser Name Role Phone Nolvia Steele Primary Care Provider [phone] Encounter Details Date Type Department Care Team (Late st Contact Info) Description 11/03/2024 Patient Outreach [facility] [address] [place] [address] Lauri Smith, RN Social History Tobacco Use Types Packs/Day Years Used Date Smoking Tobacco: Never Passive Smoke Exposure: Never Smokeless Tobacco: Never Alcohol Use Standard Drinks/Week Comments Not Currently 0 (1 standard drink = 0.6 oz pur e alcohol) [facility] Utilities Answer Date Recorded In the past 12 months has [employer], gas, oil, or water [employer] threatened to shut off services in your [...] and heating? Not hard at all 10/22/2024 [facility] Occupational Stress Questionnaire Answer [...] things needed for daily living? No 10/22/2024 [place] Depression Scale Answer Date Recorded [place] Depression Scale Total 0 11/04/2024 Retired EPD Scale: Thought of Harming Self Unrec ognized value 11/04/2024 Abuse Screen Answer Date Recorded Feels Unsafe [...] GED or equivalent No 10/22/2024 Preferred Language Singaporean 10/22/2024 PHQ-2 Answer Date Recorded Patient Health Questionnaire-2 Score 0 10/22/2024 Comments No Sex and Gender Information Value Date Recorded Sex Assigned at Female 08/29/2024 11:19 AM EDT Legal Sex Female 10:09 AM EDT Gender Identity Not on file Sexual Orientation Not on file documented as of this encounter Miscellaneous Notes * Outreach Note - Lauri Simth RN - 11/03/2024 3:40 PM EDTSummary: Motherhood Connection Motherhood Connection Check-In Questions/Answers Flowsheet Row Responses Visit Setting Telephone Best Method for Contacting Cell OB Discharge Note Reviewed Reviewed OB Discharge Navigator Reviewed Reviewed OB Discharge Medications Reviewed Reviewed [place] discharged home with mother? Yes Current Pain Levels 0-10 0 Verbalized Emotional State Acceptance Family/Support Network Significant Other Level of Involvement in Care Supportive, Interactive Do you feel comfortable in your relationship with your baby? Yes Have members of your household adjusted to your baby? Yes Is the baby's father supportive and/or involved with the baby? Yes How does your partner feel about the baby? Involved, Happy Do you feel safe at home, school and work? Yes Are you in a relationship with someone who threatens you or hurts you? No Do you have the resources to keep yourself and your baby healthy and safe? Yes Lochia (per patient report) Rubra Number of pads per day 4 Lochia Odor None Is patient ? No How is breast suppression going? Going well-used cabbage leaves and it helped with the discomfort Depression Screening Education Education Provided Doctor Appointments: Education Provided Education Education Provided Family Planning Education Education Provided Care Education Education Provided S & S to report Education Provided Followup Appointments Made Yes Well Child Visit Appointments Made Yes Appointment Date 11/06/24 Provider/Agency Onelia Arzate APRN Well Child Checkup Provider Name Lachelle Louis Well Child Check Up Date: 10/24/24 Did you complete the visit? Yes Were there any specific concerns? No Umbilical Cord No reported signs or symptoms Was the baby circumcised? Yes Circumcision care and signs/symptoms to report Reviewed Feeding Method Formula Formula Type Other Other Formula Similac Advanced Formula PO (mL) 60-120 Formula/Expressed Milk frequency of feedings: Q2.5-3H Number of wet diapers x 24 hours 8 Last BM x 24 hours none for the last 2 days Emesis (Unmeasured Occurence) no What safe sleep surface is available? Bassinet Are there stuffed animals, toys, pillows, quilts, blankets, wedges, positioners, bumpers or other loose bedding in the 's sleeping environment? No Where does the baby usually sleep? Bassinet Does the baby ever share a sleep surface with a sibling, adult or pet? No Does the baby ever share a sleep surface in a bed, couch, recliner or other? No What position do you place your baby to sleep for naps? Back What position do you place your baby to sleep at night Back Are you and/or other caregivers smoking inside or outside the baby's home? No Is the dressed appropiately for the temperature of the home? Yes Do you use a clean, dry pacifier that is not attached to a string or stuffed animal? No Review of Systems Constitutional: Negative. HENT: Negative. Eyes: Negative. Respiratory: Negative. Cardiovascular: Negative. Gastrointestinal: Negative. Endocrine: Negative. Genitourinary: Positive for vaginal bleeding. Lochia WNL Musculoskeletal: Negative. Skin: Positive for wound. Abd incision C/D/I Allergic/Immunologic: Negative. Neurological: Negative. Hematological: Negative. Psychiatric/Behavioral: Negative. Most Recent [place] Depression Scale Score (EPDS) Performed by a clinician: 0 (11/03/2024 3:53 PM) 5 Ps Screen Completed Feeling well since going home. Minimal pain and lochia WNL. States mood has been stable. Reports good family support. Not /pumping. Suppression measures reviewed. Baby doing well with no concerns at follow up appointment. No community resource needs at present. Updated resources provided via [employer] message. RN from call center to f/u next week. Contact information provided. Encouraged to call with questions, concerns, or for support before then. LAURI Pruitt - steam power plant operator Nurse Navigator 11/03/2024, 16:19 EDT documented in this encounter Plan of Treatment Not on file documented as of this encounter Visit Diagnoses Not on filedocumented in this encounter Care Teams Canary Raiser Relationship Specialty Start Date End Date Nolvia Steele PA [address] [place] [address] PCP - General Physician Behaviour Support Teacher 02/18/24 documented as of this encounter
--- OUTSIDE RECORDS SUMMARY | 2024-12-28 18:32 | XMS_ITS | Clinical Summary ---
[facility] Organization [facility] Address [address] [place] [address] Care Team Providers Care Radio Tester Name Role Phone Nolvia Steele Primary Care Provider [phone] Allergies Active Allergy Reactions Criticality Noted Date Comments Sulfa Antibiotics Hives,Swelling,Rash,Angioedema High 08/04/2015 Trimethoprim Rash Low 01/18/2022 Medications 28-0.8 MG tablet Take 1 tablet by mouth Daily. Please use formulary or generic, with DHA ideal 28 each 12 4 Active promethazine (PHENERGAN) 25 MG tabletIndicatio ns:Gastrointest inal complaints Take 1 tablet by mouth Every 6 (Six) Hours As Needed for Nausea or Vomiting. 12 tablet 5 Active famotidine (Pepcid) 20 MG tabletIndicatio ns:Gastrointest inal complaints Take 1 tablet by mouth 2 (Two) Times a Day As Needed for Heartburn or Indigestion. Take 1 tablet by mouth twice daily for 3 days then take as needed. 30 tablet 1 5 Active ibuprofen (ADVIL,MOTRIN) 600 MG tablet Take 1 tablet by mouth Every 6 (Six) Hours. 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 Unknown scar History of abnormal cervical Pap smear Overview (09/29/2024): 2021. Pap at [facility]-03/18/24 pap was LSIL with pos HPV pool. Will plan to repeat History of melanoma 03/18/2024 Overview (03/18/2024): Placenta to path Resolved Problems Problem Noted Date Diagnosed Date Resolved Date Third trimester 08/07/2024 Multigravida in second trimester 06/14/2024 08/07/2024 Vaginal bleeding in pregnanc y, second trimester 05/27/2024 09/29/2024 Second trimester 05/15/2024 0 08/07/2024 Encounter for supervision of normal first in second trimester 05/03/2024 07/22/2024 Encounters Date Type Department Care Team Description 11/18/[address] [facility] [address] [place] [address] Victoria Muñoz MD 11/10/2024 Patient Outreach [facility] [address] [place] [address] Xiomy Elliott RN 11/06/2024 11:30 AM EDT Visit [facility] [address] [place] [address] Onelia Arzate, LEGAL ADVISER follow-up (Primary Dx) 11/06/2024 Travel 11/03/2024 Patient Outreach [facility] DELIVERY [address] [place] [address] Jocelin Smith, RN 10/24/2024 Patient Outreach [facility] DEL[facility] [address] [place] [address] Jocelin Smith RN 10/22/2024 9:56 AM EDT Anesthesia Event [facility] [address] [place] [address] Cherise Barraza MD Stafford, Kristen R, CRNA 10/22/2024 9:00 AM EDT - 10/22/2024 10:00 AM EDT Surgery [facility] DEL[facility] [address] [place] [address] Victoria Muñoz MD SECTION REPEAT 10/22/2024 7:32 AM EDT - 10/24/2024 1:00 PM EDT Hospital Encounter [facility]HER [facility]AB[facility] 4B [address] [place] [address] Victoria Muñoz MD Discharge Disposition: Home or Self Care 10/21/2024 3:30 PM EDT Pre-Admission Testing [facility] PREADMISSION T [address] [place] [address] 10/21/2024 Travel 10/19/2024 Prep for Surgery [facility] ORDERS ONLY [address] [place] [address] Victoria Muñoz MD 10/17/2024 8:30 AM EDT Routine [facility] [address] [place] [address] Onelia Arzate APRN GA: 38w2d 10/17/2024 Travel 10/09/2024 10:40 AM EDT Routine [facility] [address] [place] [address] Victoria Muñoz MD GA: 37w1d 10/09/2024 Travel 10/08/2024 Results Follow-Up [facility] [address] [place] [address] Kacey Vera, LEGAL ADVISER 10/01/2024 11:30 AM EDT Ancillary Procedure [facility] [place] [address] 36 weeks gestation of 10/01/2024 11:30 AM EDT Routine [facility] [address] [place] [address] Kacey Vera, LEGAL ADVISER GA: 36w0d 10/01/2024 Travel 09/30/2024 Results Follow-Up [facility] [address] [facility] [address] [place] [address] Wilma Oliveira APRN 09/29/2024 2:45 PM EDT Routine [facility] [address] [facility] [address] [place] [address] Wilma Oliveira, LEGAL ADVISER GA: 35w5d 09/29/2024 Travel 09/29/[address] [facility] [place] [address] Victoria Muñoz MD from Last 3 Months Social History Tobacco Use Types Packs/Day Years Used Date Smoking Tobacco: Never Passive Smoke Exposure: Never Smokeless Tobacco: Never Tobacco Cessation:Counseling Given: No Alcohol Use Standard Drinks/Week Comments Not Currently 0 (1 standard drink = 0.6 oz pur e alcohol) [facility] Utilities Answer Date Recorded In the past 12 months has [employer], oil, or water [employer] threatened to shut off services in your [...] and heating? Not hard at all 10/22/2024 [facility] [place] of Occupat ional Health - Occupational Stress Questionnaire Answer Date Recorded [...] things needed for daily living? No 10/22/2024 [place] Depression Scale Answer Date Recorded [place] Depression Scale Total 0 11/06/2024 The thought [...] GED or equivalent No 10/22/2024 Preferred Language Vietnamese 10/22/2024 PHQ-2 Answer Date Recorded Patient Health Questionnaire-2 Score 0 10/22/2024 Comments No Sex and Gender Information Value Date Recorded Sex Assigned at Female 08/29/2024 11:19 AM EDT Legal Sex Female 10:09 AM EDT Gender Identity Not on file Sexual Orientation Not on file Last Filed Vital Signs Vital Sign Reading Time Taken Comments Blood Pressure 118/80 11/06/2024 11:43 AM EDT Pulse 84 10/24/2024 7:15 AM EDT Temperature 36.8 C (98.3 F) 10/24/2024 7:15 AM EDT Respiratory Rate 16 10/24/2024 7:15 AM EDT Oxygen Saturation 100% 10/22/2024 7:46 PM EDT Inhaled Oxygen Concentration - - Weight 95.3 kg (210 lb) 11/06/2024 11:43 AM EDT Height 160 cm (5' 2.99 ) 11/06/2024 11:43 AM EDT Body Mass Index 37.21 11/06/2024 11:43 AM EDT Plan of Treatment Health Maintenance Due Date Last Done Comments Annual Gynecologic Pelvic and Breast Exam 1999 HPV VACCINES (1 - 3-dose series) 06/06/2014 ANNUAL PHYSICAL 03/18/2024 INFLUENZA VACCINE 11/07/2024 PAP SMEAR 03/18/2027 03/18/2024 TDAP/TD VACCINES (3 - Td or Tdap) 06/06/2030 06/06/2020, 11/03/2011 CHLAMYDIA SCREENING Discontinued 03/18/2024 HEPATITIS C SCREENING Completed 03/18/2024 , 01/30/2020 Pneumococcal Vaccine 0-49 Aged Out No longer eligible based on patient's age to complete this topic Medical Devices Implanted Type Area Finnish Rubber Device Identifier Shelf Expiration Date Model / Serial / Lot Seal Hemo Surg Hernan/Ah Abs/Pwdr 3gm - [id number] Implanted:Qty : 1 on 10/22/2024 by Victoria Muñoz MD at [facility] Implant N/A: Abdomen [employer] 04/05/2029 [id number] / / [id number] Procedures Procedure Name Priority Date/Time Associated Diagnosis Comments CBC AND DIFFERENTIAL Timed 10/23/2024 4:57 AM EDT CBC WITH AUTO DIFFERENTIAL Timed 10/23/2024 4:57 AM EDT SPINAL Routine 10/22/2024 10:02 AM EDT SECTION REPEAT 10/22/2024 9:46 AM EDT Special Needs CARMEN 10/29/[id number]/[id number]/@0943 FENTANYL, URINE Routine 10/22/2024 8:10 AM EDT URINE DRUG SCREEN Routine 10/22/2024 8:1 0 AM EDT ABO/RH SPECIMEN VERIFICATION PREOP Routine 10/22/2024 8:05 AM EDT CBC AND DIFFERENTIAL STAT 10/21/2024 3:39 PM EDT TYPE AND SCREEN Routine 10/21/2024 3:39 PM EDT CBC WITH AUTO DIFFERENTIAL STAT 10/21/2024 3:39 PM EDT TREPONEMA PALLIDUM AB W/REFLEX RPR STAT 10/21/2024 3:39 PM EDT POCT URINALYSIS DIPSTICK, MANUAL Routine 10/17/2024 10:03 AM EDT Multigravida in third trimester POCT GLUCOSE, URINE, QUALITATIVE, DIPSTICK Routine 10/09/2024 11:11 AM EDT Third trimester POCT PROTEIN, URINE, QUALITATIVE, DIPSTICK Routine 10/09/2024 11:11 AM EDT Third trimester GROUP B STREPTOCOCCUS CULTURE Routine 10/01/2024 12:00 PM EDT 36 weeks gestation of US OB FOLLOW UP TRANSABDOMINAL APPROACH Routine 10/01/2024 11:48 AM EDT 36 weeks gestation of POCT PROTEIN, URINE, QUALITATIVE, DIPSTICK Routine 10/01/2024 11:42 AM EDT 36 weeks gestation of POCT GLUCOSE, URINE, QUALITATIVE, DIPSTICK Routine 10/01/2024 11:42 AM EDT 36 weeks gestation of ALP+ALT+AST+CREAT+LD+ TBILI+.. Routine 09/29/2024 3:49 PM EDT Gestational edema in third trimester OBSTETRIC PANEL Routine 03/18/2024 12:28 PM EST care in first trimester LIQUID-BASED PAP SMEAR WITH HPV GENOTYPING REGARDLESS OF INTERPRETATION, [facility] (MERI,COR,[facility]AD) Routine 03/18/2024 11:32 AM EST care in first trimester from Last 3 Months or Most Recently Relevant to Health Maintenance Results * (ABNORMAL) CBC Auto Differential (10/23/2024 4:57 AM EDT) Only the most recent of2 resultswithin the time period is included. WBC 9.12 3.40 - 10.80 10*3/mm3 10/23/2024 5:49 AM [facility] RBC 3.82 3.77 - 5.28 10*6/mm3 10/[facility] Hemoglobin 9.5(L) 12.0 - 15.9 g/dL 10/23/2024 5:49 AM [facility] Hematocrit 31.3(L) 34.0 - 46.6 % 10/23/2024 5:49 [facility] MCV 81.9 79.0 - 97.0 fL 10/23/2024 5:49 [facility] MCH 24.9(L) 26.6 - 33.0 pg 10/23/2024 5:49 AM [facility] MCHC 30.4(L) 31.5 - 35.7 g/dL 10/23/2024 5:49 AM [facility] RDW 14.5 12.3 - 15.4 % 10/23/2024 5:49 AM [facility] RDW-SD 41.7 37.0 - 54.0 fl 10/23/2024 5:49 AM [facility] MPV 13.0(H) 6.0 - 12.0 fL 10/23/2024 5:49 AM [facility] Platelets 162 140 - 450 10*3/mm3 10/23/2024 5:49 AM [facility] Neutrophil % 67.6 42.7 - 76.0 % 10/23/2024 5:49 AM [facility] Lymphocyte % 18.6(L) 19.6 - 45.3 % 10/23/2024 5:49 [facility] Monocyte % 10.5 5.0 - 12.0 % 10/23/2024 5:49 [facility] Eosinophil % 1.9 0.3 - 6.2 % 10/23/2024 5:49 [facility] Basophil % 0.7 0.0 - 1.5 % 10/23/2024 5:49 AM EDT [facility] Immature Grans % 0.7(H) 0.0 - 0.5 % 10/23/2024 5:49 AM EDT [facility] Neutrophils, Absolute 6.17 1.70 - 7.00 10*3/mm3 10/23/2024 5:49 AM EDT [facility] Lymphocytes, Absolute 1.70 0.70 - 3.10 10*3/mm3 10/23/2024 5:49 AM EDT [facility] Monocytes, Absolute 0.96(H) 0.10 - 0.90 10*3/mm3 10/23/2024 5:49 AM EDT [facility] Eosinophils, Absolute 0.17 0.00 - 0.40 10*3/mm3 10/23/2024 5:49 AM EDT [facility] Basophils, Absolute 0.06 0.00 - 0.20 10*3/mm3 10/23/2024 5:49 AM EDT [facility] Immature Grans, Absolute 0.06(H) 0.00 - 0.05 10*3/mm3 10/23/2024 5:49 AM EDT [facility] nRBC 0.0 0.0 - 0.2 /100 WBC 10/23/2024 5:49 AM EDT [facility] Blood Venipuncture / Unknown 10/23/2024 4:57 AM EDT 10/23/2024 5:13 AM EDT [facility] LABORAT[facility] - 10/23/2024 5:49 AM EDT Instrument flags present, additional testing may be recommended. us Victoria Muñoz MD LAB BLOOD ORDERABLES Final Result [facility]
[address] [id number], * HC BH AN SPINAL TRAY (10/22/2024 10:02 AM EDT) Narrative Yulia Bui CRNA - 10/22/2024 10:02 AM EDT Yulia Bui CRNA 10/22/2024 10:12 AM Spinal Block Pre-sedation assessment completed: 10/22/2024 9:56 AM Patient reassessed immediately prior to procedure Patient location during procedure: OR Start Time: 10/22/2024 9:57 AM Stop Time: 10/22/2024 10:02 AM Indication:at surgeon's request Performed By TOMMY/CAA: Yulia Bui CRNA Preanesthetic Checklist Completed: patient identified, IV checked, site marked, risks and benefits discussed, surgical consent, monitors and equipment checked, pre-op evaluation and timeout performed Spinal Block Prep: Patient Position:sitting Arts And Crafts Instructor:cap, gloves, sterile barriers and mask Prep:Chloraprep Patient Monitoring:EKG, continuous pulse oximetry and blood pressure monitoring Spinal Block Procedure Approach:midline Guidance:landmark technique Location:L4-L5 Needle Type:Radha Needle Gauge:25 G Paresthesia: no Fluid Appearance:clear Medications: bupivacaine in dextrose (MARCAINE SPINAL / Hyberbaric) 0.75-8.25 % injection - Intrathecal 1.5 mL - 10/22/2024 10:02:00 AM Post Assessment Patient Tolerance:patient tolerated the procedure well with no apparent complications Complications no Cherise Barraza MD ANESTHESIA ORDERABLES Final Resu lt * Urine Drug Screen - Urine, Clean Catch (10/22/2024 8:10 AM EDT) THC, Screen, Urine Negative Negative 2024 8:30 AM EDT [facility] Phencyclidine (PCP), Urine Negative Negative 10/22/2024 8:30 AM EDT [facility] Cocaine Screen, Urine Negative Negative 10/22/2024 8:30 AM EDT [facility] Methamphetamine, Ur Negative Negative 10/22 8:30 AM EDT [facility] Opiate Screen Negative Negative 10/22/2024 8:30 AM EDT [facility] Amphetamine Screen, Urine Negative Negative 10/22/2024 8:30 AM EDT [facility] Benzodiazepine Screen, Urine Negative Negative 10/22/2024 8:30 AM EDT [facility] Tricyclic Antidepressants Screen Negative Negative 10/22/2024 8:30 AM EDT [facility] Methadone Screen, Urine Negative Negative 10/22/2024 8:30 AM EDT [facility] Barbiturates Screen, Urine Negative Negative 10/22/2024 8:30 AM EDT [facility] Oxycodone Screen, Urine Negative Negative 10/22/2024 8:30 AM EDT [facility] Buprenorphine, Screen, Urine Negative Negative 10/22/2024 8:30 AM EDT [facility] Urine Urine specimen obtained by clean catch procedure / Unknown Collection / Unknown 10/22/2024 8:10 AM EDT 10/22/2024 8:18 AM EDT [facility] LABORATORY - 10/22/2024 8:30 AM EDT Cutoff For Drugs Screened: Amphetamines 500 ng/ml Barbiturates 200 ng/ml Benzodiazepines 150 ng/ml Cocaine 150 ng/ml Methadone 200 ng/ml Opiates 100 ng/ml Phencyclidine 25 ng/ml THC 50 ng/ml Methamphetamine 500 ng/ml Tricyclic Antidepressants 300 ng/ml Oxycodone 100 ng/ml Buprenorphine 10 ng/ml The normal value for all drugs tested is negative. This report includes unconfirmed screening results, with the cutoff values listed, to be used for medical treatment purposes only. Unconfirmed results must not be used for non-medical purposes such as employment or legal testing. Clinical consideration should be applied to any drug of abuse test, particularly when unconfirmed results are used. Victoria Muñoz MD URINE ORDERABLES Haley l Result [facility]
[address] [place] [address], * Fentanyl, Urine - Urine, Clean Catch (10/22/2024 8:10 AM EDT) Fentanyl, Urine Negative Negative 10/22/2024 9:35 AM EDT [facility] Urine Urine specimen obtained by clean catch procedure / Unknown Collection / Unknown 10/22/2024 8:10 AM EDT 10/22/2024 8:18 AM EDT Narrative [facility] - 10/22/2024 9:35 AM EDT Negative Threshold: Fentanyl 5 ng/mL The normal value for the drug tested is negative. This report includes final unconfirmed screening results to be used for medical treatment purposes only. Unconfirmed results must not be used for non-medical purposes such as employment or legal testing. Clinical consideration should be applied to any drug of abuse test, particularly when unconfirmed results are used. Victoria Muñoz MD URINE ORDERABLES Haley l Result Performing Organization Address City/[facility] Co de Phone Number [facility]
[address] [place] [address], [place] [phone] * ABO/Rh Specimen Verification (10/22/2024 8:05 AM EDT) ABO Type A 10/22/2024 9:13 AM EDT [facility] LABORATORY RH type Positive 10/22/2024 9:13 AM EDT [facility] Blood Structure of right upper limb / Unknown Venipuncture / Unknown 10/22/2024 8:05 AM EDT 10/22/2024 9:11 AM EDT Victoria Muñoz MD BLOOD BANK TEST ORDER DREA Final Result Performing Organization Address City/[facility] Co de Phone Number [facility]
[address] [place] [address], [place] [phone] * Treponema pallidum AB w/Reflex RPR (10/21/2024 3:39 PM EDT) Treponemal AB Total Non-Reacti ve Non-React marely 10/21/2024 7:20 PM EDT [facility] Blood Venipuncture / Unknown 10/21/2024 3:39 PM EDT 10/21/2024 3:57 PM EDT Narrative [facility] - 10/21/2024 7:20 PM EDT Reactive results will reflex RPR testing. Victoria Muñoz MD LAB BLOOD ORDERABLES Final Result Performing Organization Address City/[facility]/ZIP Co de Phone Number [facility]
[address] [place] [address], * Type & Screen (10/21/2024 3:39 PM EDT) ABO Type A 10/21/2024 4:32 PM EDT [facility] LABORAT[facility] RH type Positive 10/21/2024 4:32 PM EDT [facility] LABORATORY Antibody Screen Negative 10/21/2024 4:32 PM EDT [facility] T&S Expiration Date 10/24/2024 11:59:59 PM 10/21/2024 4:32 PM EDT [facility] Blood Venipuncture / Unknown 10/21/2024 3:39 PM EDT 10/21/2024 3:55 PM EDT Victoria Muñoz MD BLOOD BANK TEST ORDER DREA Edited Result - Final Performing Organization Address [facility] Co de Phone Number [facility]
[address] [place] [address], [place] [phone] * POC Urinalysis Dipstick (10/17/2024 10:03 AM EDT) Glucose, UA Negative Negative mg/dL [facility] Protein, POC Negative Negative mg/dL [facility] Urine 10/17/2024 10:0 3 AM EDT Onelia Arzate LEGAL ADVISER POINT OF CARE TEST ORDERA BLES Final Result [facility]
[address] [place] [address], * POC Protein, Urine, Qualitative, Dipstick (10/09/2024 11:11 AM EDT) Only the most recent of2 resultswithin the time period is included. Protein, POC Negative Negative mg/dL [facility] Lot Number 0 [facility] Expiration Date 0 [facility] Urine 10/09/2024 11:1 1 AM EDT us Victoria Muñoz MD POINT OF CARE TEST OR DERABLES Final Result Performing Organization Address [facility] Co de Phone Number [facility]
[address] [place] [address], * POC Glucose, Urine, Qualitative, Dipstick (10/09/2024 11:11 AM EDT) Only the most recent of2 resultswithin the time period is included. Glucose, UA Negative Negative mg/dL [facility] Urine 10/09/2024 11:1 1 AM EDT us Victoria Muñoz MD POINT OF CARE TEST OR DERABLES Final Result Performing Organization Address City/[facility] Co de Phone Number [facility]
[address] [place] [address], [place] [phone] * (ABNORMAL) Group B Streptococcus Culture - Swab, Vaginal/Rectum (10/01/2024 12:00 PM EDT) Strep Gp B Culture Positive( A) Negative [facility] Comment: Centers for Disease Control and Prevention (CDC) and [place] Congress of Obstetricians and Gynecologists (ACOG) guidelines for prevention of group B streptococcal (GBS) disease specify co-collection of a vaginal and rectal swab specimen to maximize sensitivity of GBS detection. Per the CDC and ACOG, swabbing both the lower vagina and rectum substantially increases the yield of detection compared with sampling the vagina alone. Penicillin G, ampicillin, or cefazolin are indicated for intrapartum prophylaxis of GBS colonization. Reflex susceptibility testing should be performed prior to use of clindamycin only on GBS isolates from penicillin-allergic women who are considered a high risk for anaphylaxis. Treatment with vancomycin without additional testing is warranted if resistance to clindamycin is noted. Swab Rectum and vagina, CS / Unknown 10/01/2024 12:00 PM EDT 10/01/2024 Comment:VR Narrative [facility] (AMBULATORY) - 10/05/2024 3:08 PM EDT Performed at: 01 - [facility] [id number] Bibliographic Services Specialist: Les Kaur PhD, Phone: [phone] Patient Fasting: N us Kacey Vera LEGAL ADVISER MICROBIOLOGY - GENERAL ORDERA BLES Final Result [facility] (AMBULATORY) [address] [place] [address], [facility] [address] [place] [address], * US Ob Follow Up Transabdominal Approach (10/01/2024 11:48 AM EDT) Anatomical Region Laterality Modality Body Ultrasound 10/01/2024 11:3 0 AM EDT Narrative 10/02/2024 9:17 AM EDT PAT NAME: LUIS FRANCISCO MED REC#: [id number] DA: [id number] PAT GEND: F PAT TYPE: O EXAM JOSE: [id number] REF PHYS KACEY VERA Indication ======== Obesity, S>D Comparison Studies The findings of this study are compared to the prior ultrasound study dated 06/12/24 Method ======= Voluson E6, Transabdominal ultrasound examination ========= Clemens . Number of fetuses: 1 Dating ====== LMP on: 01/18/2024 GA by LMP 36 w + 5 d LAVELL by LMP: 10/24/2024 Method of dating: based on stated LAVELL GA by prior assessment 36 w + 0 d LAVELL by prior assessment: 10/29/2024 Ultrasound examination on: 10/01/2024 GA by U/S based upon: AC, BPD, Femur, HC GA by U/S 37 w + 1 d LAVELL by U/S: 10/21/2024 Previous dating: based on stated LAVELL, selected on 06/12/2024 Agreed LAVELL of previous datin10/29/2024 Assigned: based on stated LAVELL, selected on 10/01/2024 Assigned GA 36 w + 0 d Assigned LAVELL: 10/29/2024 length 280 d General Evaluation Cardiac activity present. FHR 148 bpm. movements visualized. Presentation cephalic. Placenta Placental site: anterior. Amniotic fluid Amount of AF: normal. MVP 4.6 cm. NYLA 15.2 cm. Q1 4.6 cm, Q2 2.2 cm, Q3 4.3 cm, Q4 4.1 cm. breathing observed. Biometry Standard BPD 89.9 mm 36w 3d 70% Hadlock HC 331.6 mm 37w 6d 64% Hadlock AC 344.9 mm 38w 3d 98% Hadlock Femur 69.3 mm 35w 4d 34% Hadlock HC / AC 0.96 EFW 3,210 g 37w 6d 86% Hadlock EFW (lb) 7 lb EFW (oz) 1 oz EFW by: Hadlock ([id number]) Other: An ultrasound for weight has a margin of error of up to twenty percent. Extremities / Bony Struc FL / BPD 0.77 FL / HC 0.21 FL / AC 0.20 Other Structures FHR 148 bpm Anatomy Lateral ventricles: Appears normal 4-chamber view: Appears normal Stomach: Appears normal Kidneys: Appears normal Bladder: Appears normal Gender: male Wants to know gender: yes Impression Estimated weight 7lb 1oz, 86%ile, AC 98%ile. [place]: RT Pelon(R), [facility] [[email or web address]] Physician: Victoria Muñoz MD, FACOG Electronically signed by: Victoria Muñoz MD, FACOG at: 09:17 Procedure Note Victoria Muñoz MD - 10/02/2024 PAT NAME: LUIS FRANCISCO MED REC#: [id number] DA: [id number] PAT GEND: F PAT TYPE: O EXAM JOSE: [id number] REF PHYS KACEY VERA Indication ======== Obesity, S>D Comparison Studies The findings of this study are compared to the prior ultrasound studydated 06/12/24 Method ======= Voluson E6, Transabdominal ultrasound examination ========= Clemens . Number of fetuses: 1 Dating ====== LMP on:01/18/2024 GA by [id number] w + 5 d LAVELL by LMP:10/24/2024 Method of dating:based on stated LAVELL GA by prior [id number] w + 0 d LAVELL by prior assessment:10/29/2024 Ultrasound examination on:10/01/2024 GA by U/S based upon:AC, BPD, Femur, HC GA by U/S37 w + 1 d LAVELL by U/S:10/21/2024 Previous dating:based on stated LAVELL, selected on 06/12/2024 Agreed LAVELL of previous datin10/29/2024 Assigned:based on stated LAVELL, selected on 10/01/2024 Assigned [id number] w + 0 d Assigned LAVELL:10/29/2024 [id number] d General Evaluation Cardiac activity present. FHR 148 bpm. movements visualized. Presentation cephalic. Placenta Placental site: anterior. Amniotic fluid Amount of AF: normal. MVP 4.6 cm. NYLA 15.2 cm. Q1 4.6 cm,Q2 2.2 cm, Q3 4.3 cm, Q4 4.1 cm. breathing observed. Biometry Standard BPD89.9 mm 36w 3d 70% Hadlock HC331.6 mm 37w 6d 64% Hadlock AC344.9 mm 38w 3d 98% Hadlock Femur69.3 mm 35w 4d 34% Hadlock HC / AC0.96 EFW3,210 g 37w 6d 86% Hadlock EFW (lb)7 lb EFW (oz)1 oz EFW by:Hadlock ([id number]) Other:An ultrasound for weight has a margin of error of up totwenty percent. Extremities / Bony Struc FL / BPD0.77 FL / HC0.21 FL / AC0.20 Other Structures AHC554 bpm Anatomy Lateral ventricles:Appears normal 4-chamber view:Appears normal Stomach:Appears normal Kidneys:Appears normal Bladder:Appears normal Gender:male Wants to know gender:yes Impression Estimated weight 7lb 1oz, 86%ile, AC 98%ile. Kai [place]: RT Pelon(R), [facility] [[email or web address]] Physician: Victoria Muñoz MD, FACOG Electronically signed by: Victoria Muñoz MD, FACOG at: 2609:17 us Kacey Ailyn Vera LEGAL ADVISER IMG US ORDERABLES Final Resul t * (ABNORMAL) AlP+ALT+AST+Creat+LD+TBili+.. (09/29/2024 3:49 PM EDT) Uric Acid 3.9 2.6 - 6.2 mg/dL [facility] Comment:Therapeutic target f or gout patients: <6.0 Creatinine 0.56(L) 0.57 - 1.00 mg/dL [facility] EGFR Result 130 >59 mL/min/1.7 3 [facility] Total Bilirubin 0.3 0.0 - 1.2 mg/dL [facility] Alkaline Phosphatase 204(H) 44 - 121 IU/L [facility] LDH 188 119 - 226 IU/L [facility] AST (SGOT) 16 0 - 40 IU/L [facility] ALT (SGPT) 7 0 - 32 IU/L [facility] WBC 9.2 3.4 - 10.8 x10E3/uL [facility] RBC 4.13 3.77 - 5.28 x10E6/uL [facility] Hemoglobin 10.6(L) 11.1 - 15.9 g/dL [facility] Hematocrit 34.4 34.0 - 46.6 % [facility] MCV 83 79 - 97 fL [facility] MCH 25.7(L) 26.6 - 33.0 pg [facility] MCHC 30.8(L) 31.5 - 35.7 g/dL [facility] RDW 13.0 11.7 - 15.4 % [facility] Platelets 194 150 - 450 x10E3/uL [facility] Neutrophil Rel % 73 Not Estab. % [facility] Lymphocyte Rel % 14 Not Estab. % [facility] Monocyte Rel % 9 Not Estab. % [facility] Eosinophil Rel % 2 Not Estab. % [facility] Basophil Rel % 1 Not Estab. % [facility] Neutrophils Absolute 6.8 1.4 - 7.0 x10E3/uL [facility] Lymphocytes Absolute 1.3 0.7 - 3.1 x10E3/uL [facility] Monocytes Absolute 0.8 0.1 - 0.9 x10E3/uL [facility] Eosinophils Absolute 0.2 0.0 - 0.4 x10E3/uL [facility] Basophils Absolute 0.1 0.0 - 0.2 x10E3/uL [facility] Immature Granulocyte Rel % 1 Not Estab. % [facility] Immature Grans Absolute 0.1 0.0 - 0.1 x10E3/uL [facility] Blood 09/29/2024 3:49 PM EDT 09/29/2024 [facility]) - 09/30/2024 7:37 AM EDT Performed at: 01 - [facility] [place] [address], [place] [id number] Bibliographic Services Specialist: Les Kaur PhD, Phone: [phone] Wilma Oliveira APRN LAB BLOOD ORDERABLES Final R esult [facility]) [address] [place] [address], [facility] [address] [place] [address], * Obstetric Panel (03/18/2024 12:28 PM EST) Hepatitis B Surface Ag Negative Negative [facility] Hep C Virus Ab Non Reactive Non Reactive [facility] Comment: HCV antibody alone does not differentiate between previously resolved infection and active infection. Equivocal and Reactive HCV antibody results should be followed up with an HCV RNA test to support the diagnosis of active HCV infection. RPR Non Reactive Non Reactive [facility] Rubella Antibodies, IgG 1.14 Immune >0.99 index [facility] Comment: Non-immune <0.90 Equivocal 0.90 - 0.99 Immune >0.99 ABO Type A [facility] Rh Factor Positive [facility] Comment: Please note: Prior records for this patient's ABO / Rh type are not available for additional verification. Antibody Screen Negative Negative [facility] WBC 8.6 3.4 - 10.8 x10E3/uL [facility] RBC 4.71 3.77 - 5.28 x10E6/uL [facility] Hemoglobin 13.4 11.1 - 15.9 g/dL [facility] Hematocrit 41.4 34.0 - 46.6 % [facility] MCV 88 79 - 97 fL [facility] MCH 28.5 26.6 - 33.0 pg [facility] MCHC 32.4 31.5 - 35.7 g/dL [facility] RDW 13.0 11.7 - 15.4 % [facility] Platelets 239 150 - 450 x10E3/uL [facility] Neutrophil Rel % 76 Not Estab. % [facility] Lymphocyte Rel % 14 Not Estab. % [facility] Monocyte Rel % 7 Not Estab. % [facility] Eosinophil Rel % 2 Not Estab. % [facility] Basophil Rel % 1 Not Estab. % [facility] Neutrophils Absolute 6.5 1.4 - 7.0 x10E3/uL [facility] Lymphocytes Absolute 1.2 0.7 - 3.1 x10E3/uL [facility] Monocytes Absolute 0.6 0.1 - 0.9 x10E3/uL [facility] Eosinophils Absolute 0.1 0.0 - 0.4 x10E3/uL [facility] Basophils Absolute 0.1 0.0 - 0.2 x10E3/uL [facility] Immature Granulocyte Rel % 0 Not Estab. % [facility] Immature Grans Absolute 0.0 0.0 - 0.1 x10E3/uL [facility] Blood 03/18/2024 12:2 8 PM EST 03/18/2024 Narrative [facility]) - 03/21/2024 5:07 PM EST Performed at: - [address] [id number] Bibliographic Services Specialist: Les Kaur PhD, Phone: [phone] Patient Fasting: N Onelia Arzate LEGAL ADVISER LAB BLOOD ORDERABLES Haley l Result [facility] (AMBULATORY) [address] [place] [address], [facility] [address] [id number], * LIQUID-BASED PAP SMEAR WITH HPV GENOTYPING REGARDLESS OF INTERPRETATION (MERI,COR,MAD) (03/18/2024 11:32 AM EST) Reference Lab Report [facility] [address] [place] [address] or [phone] Danilo Hwang M.D., Oil Pipeline Dispatcher PATIENT NAME LABORATORY NO. [address] LUIS FRANCISCO [id number] AGE SEX SSN CLIENT REF # [id number] 24 2000 F [id number] [address] REQUESTING Johana [place] [address] ONELIA ARZATE DATE COLLECTED DATE RECEIVED DATE REPORTED 03/18/2024 03/18/2024 03/20/2024 ThinPrep Pap with Cytyc Imaging DIAGNOSIS: Epithelial cell abnormality. (LSIL) Low Grade Squamous Intraepithelial Lesion. Professional interpretation rendered by Danilo Hwang M.D., F.C.A.P. at [facility], [address] [place] [address]. SPECIMEN ADEQUACY: SATISFACTORY FOR EVALUATION Transformation zone is present. 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 The high risk HPV types detected include: 16, 18, 31, 33, 35, 39, 45, 51, 52, 56, 58, 59, 66, 68 HPV Genotyping HPV 16: Negative HPV 18/45: Negative The Aptima HPV 16, 18/45 genotype assay is an in vitro nucleic acid amplification test for the qualitative detection of E6/E7 viral messenger RNA of human papillomavirus (HPV) types 16,18/45 in cervical specimens from women with Aptima HPV positive results. The Aptima HPV 16, 18/45 genotype assay can differentiate HPV 16 from HPV 18 and/or HPV 45, but does not differentiate between HPV 18 and HPV 45. Chlamydia / Gonorrhea CHLAMYDIA TRACHOMATIS: Negative NEISSERIA GONORRHOEAE: Negative The Aptima Combo 2 assay is a target amplification nucleic acid probe test that utilizes target capture for the in vitro qualitative detection and differentiation of ribosomal RNA from Chlamydia trachomatis and Neisseria gonorrhoeae to aid in the diagnosis of chlamydial and gonococcal disease using the Armona system. SHRIMPING BOAT CAPTAIN: SLIM WHITEHEAD (ASCP) REVIEWED, DIAGNOSED AND ELECTRONICALLY SIGNED BY: Danilo Hwang M.D., F.C.A.P. CPT CODES: 28102, [id number], 21616, 64569, 37976, [id number] 03/20/2024 11:11 AM EST [facility] ThinPrep Vial Collection / Unknown 03/18/2024 11:32 AM EST 03/18/2024 11:32 AM EST Onelia Arzate LEGAL ADVISER PATHOLOGY/CYTOLOGY ORDERA BLES Final Result [facility]
[address] [place] [address], from Last 3 Months or Most Recently Relevant to Health Maintenance Insurance [facility] Advance Directives * CPR (Attempt to Resuscitate) (Latest Code Status on File) Date Activated Date Inactivated Comments 10/22/2024 1:38 PM 10/24/2024 4:30 PM Question Answer Comments Code Status (Patient has no pulse and is not breathing): CPR (Attempt to Resuscitate) Medical Interventions (Patie nt has pulse or is breathing): Full * CPR (Attempt to Resuscitate) Date Activated Date Inactivated Comments 10/22/2024 7:35 AM 10/22/2024 1:38 PM Question Answer Comments Code Status (Patient has no pulse and is not breathing): CPR (Attempt to Resuscitate) Medical Interventions (Patie nt has pulse or is breathing): Full Support Level Of Support Discussed With: Patient Care Teams Radio Tester Relationship Specialty Start Date End Date Nolvia Steele PA [address] [place] [address] PCP - General Physician Industrial Technology Teacher 02/18/24
--- OUTSIDE RECORDS SUMMARY | 2024-12-28 18:32 | XMS_ITS | Encounter Summary ---
Author Organization [facility] yste Address [address] [place] [address] Care Team Providers Care Technical Account Representative Name Role Phone Nolvia Steele Primary Care Provider Encounter Details Date Type Department Care Team (Late st Contact Info) Description 10/08/2024 Results Follow-Up [facility] [address] [place] [address] Lise Aponte, HUMAN RELATIONS TEACHER [address] [facility] [address] [place] [address] Social History Tobacco Use Types Packs/Day Years Used Date Smoking Tobacco: Never Passive Smoke Exposure: Never Smokeless Tobacco: Never Alcohol Use Standard Drinks/Week Comments Not Currently 0 (1 standard drink = 0.6 oz pur e alcohol) [facility] Utilities Answer Date Recorded In the past 12 months has [employer], gas, oil, or water company threatened to shut off services in your home? No 05/15/2024 AUDIT-C Answer Date Recorded Q1: How often do you have a drink containing alcohol? Never 05/15/2024 Q2: How many drinks containi ng alcohol do you have on a typical day when you are drinking? Patient does not drink Q3: How often do you have si x or more drinks on one occasion? Never 05/15/2024 Overall Financial Resource Strain (CARDIA) Answe r Date Recorded How hard is it for you to pa y for the very basics like food, housing, medical care, and heating? Somewhat hard 05/15/2024 Exercise Vital Sign Answer Date Recorde d On average, how many days pe r week do you engage in moderate to strenuous exercise (like a brisk walk)? 5 days 05/15/2024 On average, how many minutes do you engage in exercise at this level? 60 min 05/15/2024 Hunger Vital Sign Answer Date Recorded Within the past 12 months, y ou worried that your food would run out before you got the money to buy more. Never true 05/15/19 25 Within the past 12 months, t he food you bought just didn't last and you didn't have money to get more. Never true 05/15/2024 PRAPARE - Transportation Answer Date Re corded In the past 12 months, has l ack of transportation kept you from medical appointments or from getting medications? No 09/2024 In the past 12 months, has l ack of transportation kept you from meetings, work, or from getting things needed for daily living? No 05/15/2024 [place] Depression Scale Answer Date Recorded [place] Depression Scale Total 0 09/22/2024 The thought of harming myself has occurred to me . Never 09/22/2024 Abuse Screen Answer Date Recorded Feels Unsafe at Home or Work/School no 05/15/2024 Feels Threatened by Someone no 09/2024 Does Anyone Try to Keep You From Having Contact with Others or Doing Things Outside Your Home? no 05/15/2024 Physical Sign of Abuse Present Not on file 0 05/15/2024 Housing Stability Answer Date Recorded Current Living Arrangements home 09/2024 Potentially Unsafe Housing Conditions none 05/15/2024 Family and Community Support Answer Jose e Recorded If for any reason you need h elp with day-to-day activities such as bathing, preparing meals, shopping, managing finances, etc., do you get the help you need? I get all the help I need 05/15/2024 How often do you feel lonely or isolated from those around you? Never 05/15/2024 Employment Answer Date Recorded Do you want help finding or keeping work or a job? I do not need or want help 05/27/2024 Disabilities Answer Date Recorded Difficulty Concentrating, Remembering or Making Decisions no 05/15/2024 Difficulty Managing Errands Independently no 05/15/2024 Education Answer Date Recorded Do you want help with school or training? For example, starting or completing job training or getting a high school diploma, GED or equivalent No 05/27/2024 Preferred Language Bangladeshi 05/27/2024 PHQ-2 Answer Date Recorded Patient Health Questionnaire-2 Score 0 05/15/2024 Comments Yes Sex and Gender Information Value Date Recorded Sex Assigned at Female 08/29/2024 11:19 AM EDT Legal Sex Female 10:09 AM EDT Gender Identity Not on file Sexual Orientation Not on file documented as of this encounter Plan of Treatment Not on file documented as of this encounter Visit Diagnoses Not on filedocumented in this encounter Care Teams Technical Account Representative Relationship Specialty Start Date End Date Nolvia Steele PA [address] [place] [address] PCP - General Physician Uppers Edge Burnisher 02/18/24 documented as of this encounter
--- OUTSIDE RECORDS SUMMARY | 2024-12-28 18:32 | XMS_ITS ---
[facility] Address [address] [place] [address] Care Team Providers Care Letterer Name Role Phone Nolvia Steele Primary Care Provider Motherhood Connection Status:Closed (Closed) Start date:04/28/2024 Enrollment date:05/15/2024 End date:11/10/2024 Close reason:Patient graduated Overview This is a Population Health program aimed at increasing positive outcomes for expectant mothers. Continued Care and Services Coordination
--- OUTSIDE RECORDS SUMMARY | 2024-12-28 18:32 | XMS_ITS | Encounter Summary ---
Author Organization [facility] Address [address] [place] [address] Care Team Providers Care Case Preparer And Liner Name Role Phone Nolvia Steele Primary Care Provider [phone] Encounter Details Date Type Department Care Team (Latest Contact Info) Description 11/06/2024 Travel Social History Tobacco Use Types Packs/Day Years Used Date Smoking Tobacco: Never Passive Smoke Exposure: Never Smokeless Tobacco: Never Alcohol Use Standard Drinks/Week Comments Not Currently 0 (1 standard drink = 0.6 oz pur e alcohol) [facility] Utilities Answer Date Recorded In the past 12 months has [employer], gas, oil, or water company threatened to [...] and heating? Not hard at all 10/22/2024 [facility] - Occupational Stress [...] things needed for daily living? No 10/22/2024 Clio Depression Scale Answer Date Recorded Clio Depression Scale Total 0 11/06/2024 The thought [...] GED or equivalent No 10/22/2024 Preferred Language Guyanese 10/22/2024 PHQ-2 Answer Date Recorded Patient Health [...] on filedocumented in this encounter Care Teams Case Preparer And Liner Relationship Specialty Start Date End Date Nolvia Steele PA [address] [place] [address] PCP - General Physician Certified Executive Chef 02/18/24 documented as of this encounter
--- OUTSIDE RECORDS SUMMARY | 2024-12-28 18:32 | XMS_ITS | Encounter Summary ---
Author Organization [facility] yste Address [address] [place] [address] Care Team Providers Care Senior Quality Engineer Name Role Phone Nolvia Steele Primary Care Provider [phone] Encounter Details Date Type Department Care Team (Late st Contact Info) Description 09/08/2024 Results Follow-Up [facility] [address] [place] [address] Onelia Arzate, INSET CUTTER [address] [facility] [address] [place] [address] Social History Tobacco Use Types Packs/Day Years Used Date Smoking Tobacco: Never Passive Smoke Exposure: Never Smokeless Tobacco: Never Alcohol Use Standard Drinks/Week Comments Not Currently 0 (1 standard drink = 0.6 oz pur e alcohol) [facility] Utilities Answer Date Recorded In the past 12 months has [employer], gas, oil, or water company threatened to [...] things needed for daily living? No 05/15/2024 Abuse Screen Answer Date Recorded Feels Unsafe [...] GED or equivalent No 05/27/2024 Preferred Language Palestinian 05/27/2024 PHQ-2 Answer Date Recorded Patient Health [...] on filedocumented in this encounter Care Teams Senior Quality Engineer Relationship Specialty Start Date End Date Nolvia Steele PA [address] [place] [address] PCP - General Physician Gold Frame Assembler 02/18/24 documented as of this encounter
--- OUTSIDE RECORDS SUMMARY | 2024-12-28 18:32 | XMS_ITS | Encounter Summary ---
Author Organization [facility] yste Address [address] [place] [address] Care Team Providers Care Scouring Train Operator Name Role Phone Nolvia Steele Primary Care Provider [phone] Encounter Details Date Type Department Care Team (Late st Contact Info) Description 07/25/2024 Results Follow-Up [facility] O[facility] [address] [place] [address] Onelia Arzate, FACILITIES ENGINEER [address] [facility] [address] [place] [address] Social History Tobacco Use Types Packs/Day Years Used Date Smoking Tobacco: Never Passive Smoke Exposure: Never Smokeless Tobacco: Never Alcohol Use Standard Drinks/Week Comments Not Currently 0 (1 standard drink = 0.6 oz pur e alcohol) [facility] Utilities Answer Date Recorded In the past 12 months has [employer], gas, oil, or water company threatened to [...] GED or equivalent No 05/27/2024 Preferred Language Syrian 05/27/2024 PHQ-2 Answer Date Recorded Patient Health [...] on filedocumented in this encounter Care Teams Scouring Train Operator Relationship Specialty Start Date End Date Nolvia Steele PA [address] [place] [address] PCP - General Physician Cerner Analyst 02/18/24 documented as of this encounter
--- OUTSIDE RECORDS SUMMARY | 2024-12-28 18:32 | XMS_ITS | Encounter Summary ---
Author Organization [facility] ystem Address [address] [place] [address] Care Team Providers Care Network Consultant Name Role Phone Nolvia Steele Primary Care Provider [phone] Encounter Details Date Type Department Care Team (Late st Contact Info) Description 11/10/2024 Patient Outreach [facility] N[facility] [address] [place] [address] Xiomy Elliott RN Social History Tobacco Use Types Packs/Day Years Used Date Smoking Tobacco: Never Passive Smoke Exposure: Never Smokeless Tobacco: Never Alcohol Use Standard Drinks/Week Comments Not Currently 0 (1 standard drink = 0.6 oz pur e alcohol) [facility] Utilities Answer Date Recorded In the past 12 months has [employer], gas, oil, or water [employer] threatened to shut off services in your [...] and heating? Not hard at all 10/22/2024 [facility] - Occupational Stress Questionnaire Answer Date [...] things needed for daily living? No 10/22/2024 [place] Depression Scale Answer Date Recorded [place] Depression Scale Total 0 11/06/2024 The thought [...] GED or equivalent No 10/22/2024 Preferred Language Latvian 10/22/2024 PHQ-2 Answer Date Recorded Patient Health Questionnaire-2 Score 0 10/22/2024 Comments No Sex and Gender Information Value Date Recorded Sex Assigned at Female 08/29/2024 11:19 AM EDT Legal Sex Female 10:09 AM EDT Gender Identity Not on file Sexual Orientation Not on file documented as of this encounter Miscellaneous Notes * Outreach Note - Xiomy Elliott RN - 11/10/2024 11:03 AM EDT Motherhood Connection Survey Flowsheet Row [facility]? Yes Call start time [phone] Call end time [phone] Baby sex Boy [place] discharged home with mother? Yes Baby sex Boy Delivery type Emotional state Acceptance Family support Yes Do you have all necessary resources to care for you and your baby? Yes Have members of your household adjusted to your baby? Yes Did you have any problems with pre-eclampsia during this ? Yes Do you have any of the following: No Issues Did you have blood glucose issues during this No Lochia amount Light Lochia per patient report Serosa Did you have an episiotomy/tear/abdominal incision? Yes Additional comments denies s/s infection Feeding Method Bottle Frequency every 2-3 hrs Amount 2-4 oz Storage of bottles mixes as needed Breast Condition No Nipple Condition No Nursing Interventions Supportive bra Signs baby is ready to eat Crying Feeding tolerance Weight gain Number of wet diapers x 24 hours 8-10 Last BM x 24 hours 2 Umbilical Cord No reported signs or symptoms Was the baby circumcised? Yes Circumcision care and signs/symptoms to report Reviewed Where does the baby usually sleep? Bassinet Are there stuffed animals, toys, pillows, quilts, blankets, wedges, positioners, bumpers or other loose bedding in the 's sleeping environment? No Does the baby ever share a sleep surface in a bed, couch, recliner or other? No What position do you lay your baby down to sleep? Back Are you and/or other caregivers smoking inside or outside the baby's home? No Mom appointment comments: has had OB F/U, next one scheduled Baby appointment comments: has had F/U appt, next one scheduled Call completed? Yes How satisfied were you with the Motherhood Connection Program? 5 Anyone you would like to recognize from your time in the Motherhood Connection Program Jocelin Sweeney - Registered Nurse documented in this encounter Plan of Treatment Not on file documented as of this encounter Visit Diagnoses Not on filedocumented in this encounter Care Teams Network Consultant Relationship Specialty Start Date End Date Nolvia Steele PA [address] [place] [address] PCP - General Physician Wind Plant Manager 02/18/24 documented as of this encounter
--- OUTSIDE RECORDS SUMMARY | 2024-12-28 18:32 | XMS_ITS | Clinical Summary ---
Author Organization Healthcare Address [address] [place] [address] Care Team Providers Care Ham Doctor Name Role Phone Unavailable Primary Care Provider [...] 08/04/2015 08/10/2021 Pain of hand 08/02/2015 08/10/2021 Immunizations Immunization Administration Dates Next Due Tdap [...] SDOH Screenings 06/06/2017 [facility]-Adult SDOH Screenings 06/06/2017 [id number] Vaccine ( season) 2024 [facility]-Influenza Vaccine (#1) 2024 [facility]-Pap Smear 03/18/2027 03/18/2024, 08/10/2021 [facility]-DTaP,Tdap,and [...] 11:36 AM EDT) Case Report Cytology Case: [id number] Authorizing Provider: Ta Olvera MD Collected: 08/10/2021 1136 Ordering Location: Medical Office Building Received: 08/10/2021 4247 Obstetrics and Gynecology First Screen: Candelaria Arce Pathologist: Dary Crowe MD Specimen: ThinPrep Pap Test, Liquid-Based Cervical/Vaginal, CERVICAL/VAGINAL 08/15/2021 10:26 AM EDT [facility] Interpretation LOW GRADE SQUAMOUS INTRAEPITHELIAL LESION WITH ATYPICAL SQUAMOUS CELLS, CANNOT EXCLUDE HIGH GRADE SQUAMOUS INTRAEPITHELIAL LESION (LSIL + ASC-H), SEE COMMENT(A) 08/15/2021 10:26 AM EDT [facility] at 1026 EDT Other Findings Shift in melinda suggestive of bacterial vaginosis. 08/15/2021 10:26 AM EDT [facility] Specimen Adequacy Satisfactory for evaluation; endocervical/castillo sformation zone component present. Slide imaged by the ThinPrep Imaging system and selected 22 strong reviewed then full manual screening. 08/15/2021 10:26 AM EDT [facility] Comment Suggest colposcopy (www.asccp.org). Follow-up biopsies in women with ungraded YOMI or mild-moderate dysplasia may detect HSIL in 30-40% of patients. Consideration for colposcopy and/or HPV testing is recommended. 08/15/2021 10:26 AM EDT [facility] Cervical cytology is a screening test [...] results is suggested (please call Microbiology at [phone] for results). 08/15/2021 10:26 AM EDT [facility] Menstrual Status Cyclic 08/16/19 10:26 AM EDT [facility] History of Hysterectomy Not Applicable 08/15/2021 10:26 AM EDT [facility] Contraceptive History Depo 08/15/2021 10:26 AM EDT [facility] Screening Type Routine Screen 2021 10:26 AM EDT [facility] High Risk? No 08/15/2021 10:26 AM EDT [facility] HPV Testing Requested? No HPV Testing Requested 08/15/2021 10:26 AM EDT [facility] Previous Cancer History No 08/15/2021 10:26 AM EDT [facility] Clinical Information Z01.419 - Well woman exam with routine gynecological exam [ICD-10-CM] 08/15/2021 10:26 AM EDT [facility] Last Menstrual Period 08/01/21 08/15/2021 10:26 AM EDT [facility] Swab Vaginal and cervical cytologic material / Unknown Non-blood Collection / Unknown 08/10/2021 11:36 AM EDT 08/10/2021 1:37 PM EDT us Ta Olvera MD LAB CYTOLOGY ORDERABLES F inal Result Performing Organization Address City/State/[facility] Co de Phone Number [facility] [address] [place] [phone] from Last 3 Months or Most Recently Relevant to Health Maintenance Insurance [employer] [facility] MEDICAID
--- OUTSIDE RECORDS SUMMARY | 2024-12-28 18:32 | XMS_ITS | Encounter Summary ---
Author Organization [facility] yste Address [address] [place] [address] Care Team Providers Care Biology Manager Name Role Phone Nolvia Steele Primary Care Provider [phone] Encounter Details Date Type Department Care Team (Late st Contact Info) Description 11/18/2024 Telephone [facility] OBGYN [address] [place] [address] Victoria Muñoz MD [address] [facility] [address] [place] [id number] Social History Tobacco Use Types Packs/Day Years Used Date Smoking Tobacco: Never Passive Smoke Exposure: Never Smokeless Tobacco: Never Alcohol Use Standard Drinks/Week Comments Not Currently 0 (1 standard drink = 0.6 oz pur e alcohol) [facility] Utilities Answer Date Recorded In the past 12 months has [employer], gas, oil, or water company threatened to [...] and heating? Not hard at all 10/22/2024 [facility] [place] of Occupat ional Health - Occupational Stress [...] things needed for daily living? No 10/22/2024 [place] Depression Scale Answer Date Recorded [place] Depression Scale Total 0 11/06/2024 The thought [...] GED or equivalent No 10/22/2024 Preferred Language Turkish 10/22/2024 PHQ-2 Answer Date Recorded Patient Health Questionnaire-2 Score 0 10/22/2024 Comments No Sex and Gender Information Value Date Recorded Sex Assigned at Female 08/29/2024 11:19 AM EDT Legal Sex Female 10:09 AM EDT Gender Identity Not on file Sexual Orientation Not on file documented as of this encounter Miscellaneous Notes * Telephone Encounter - Mariangel Butler MA - 11/19/2024 9:20 AM EDT Per ADAM, yes, light duty please Patient notified, and she voiced understanding. Work note put in mychart for patient. * Telephone Encounter - Mariangel Butler MA - 11/18/2024 10:21 AM EDT ADAM patient- Patient requesting a return to work note, for 4 weeks , as light duty. S/p repeat 10/22/2024. 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 Reviewed with patient that I would discuss with ADAM,and return her call. She voiced understanding. documented in this encounter Plan of Treatment Not on file documented as of this encounter Visit Diagnoses Not on filedocumented in this encounter Care Teams Biology Manager Relationship Specialty Start Date End Date Nolvia Steele PA [address] [place] [address] PCP - General Physician Hot Packer 02/18/24 documented as of this encounter
--- NOTE | 2024-12-28 18:34 | ECG_ITS ---
APPROVED REPORT Exam: Resting ECG HR:138 bpm ECG Measurements Heart Rate 138 AXES NH 141 P 77 QRSd 88 QRS 104 QT 329 T 71 QTc 410 Conclusion Sinus tachycardia at [address] or T wave changes concerning for ischemia Electronically signed by : Wilma Newsome, 12/29/2024 00:46:49
[2024-12-28 18:41] LABS: Influenza A, PCR Not Detected (NotDetected); Influenza B, PCR Not Detected (NotDetected)
--- NOTE | 2024-12-28 18:44 | ED_ITS ---
<Statement entered by Wilma Newsome DO - 12/29/24 00:21> I was consulted by the ANTHONY, and we discussed the complexity of problems being addressed. I approve the treatment and management plan for this patient's care in the emergency department, thus performing a substantial portion of the medical decision making. Wilma Newsome DO Discharge Plan Disposition Patient Disposition: Home, Self-Care Condition: Good Prescriptions Prescriptions: No Action multivitamin Tablet 1 tab PO DAILY Referrals Follow up/Referrals: Nolvia Steele PA [Primary Care Provider, Medical] - See instructions Clinical Impressions Clinical Impression: COVID Stand Alone Forms Stand Alone Forms: Work/School Release Instructions Patient Instructions: COVID-19 Print Language Print Language: Guyanese Discharge ED Provider: Wilma Newsome General Adult HPI <Heather Sepulveda APRN - Last Filed: 12/28/24 21:55> General Chief complaint: Upper Respiratory Infection Stated complaint: Expossed to COVID; Soar throat; body aches; Time Seen by Provider: 12/28/24 18:53 Mode of Arrival: Ambulatory Source of Information: Patient Description of Symptoms (Recalled from ER Triage Doc. by RN): Reports being exposed to COVID and is now having body aches, sore throat, and runny nose. History of Present Illness HPI narrative: Like an attack is a 24-year-old female without significant past medical history who presents emergency room today with complaints of bodyaches, upper respiratory symptoms, shortness of breath, cough. Ms. Francisco works in a [employer] facility, multiple residents have apparently recently tested positive for COVID. Patient obviously has been exposed to COVID. States her body aches and symptoms started yesterday, acutely worsened today. Reports postnasal drip. Nonproductive cough noted. Shortness of breath started yesterday. Related Data Home Medications ?Medication ?Instructions ?Recorded ?Confirmed multivitamin 1 tab PO DAILY 07/10/24 04/0 07/01 Allergies Allergy/AdvReac Type Severity Reaction Status Date / Time Sulfa (Sulfonamide Allergy Mild Verified 07/10/24 10:48 Antibiotics) (SULFA (SULFONAMIDE ANTIBIOTICS)) sulfamethoxazole (From Allergy Unknown Verified 07/10/24 10:48 BACTRIM) trimethoprim (From BACTRIM) Allergy Unknown Verified 07/10/24 10:48 PFSH <Heather Sepulveda APRN - Last Filed: 12/28/24 21:55> [facility] Disclaimer: The information contained in this section may have been updated after the patient was seen, as this information can be updated by other users. Medical History Viral upper respiratory infection Attention Deficit Hyperactivity Disorder (ADHD) Social History Smoking Status: Never smoker alcohol intake: never substance use type: denies use current occupational status: employed Travel in the last 8 weeks?: None Have you lived/traveled outside US in past 30 days?: No Contact w/someone who lives/traveled outside US past 30 days?: No Exposure to someone with infectious disease in past 14 days?: No Do you have a fever (greater than 100.4 F or 38 C)?: No Have you tested positive for COVID-19?: No Exposed to someone with COVID-19 in past 14 days?: No Do you have a sore throat?: No Do you have a cough?: No Do you have any weakness?: No Do you have any diarrhea?: No Are you experiencing any unusual bleeding?: No Do you have any muscle aches/pain?: No Do you have any abdominal pain?: No Are you experiencing loss of taste or smell?: No Other Medical History Have you received the Flu Vaccine for this season: No Have you received the Pneumonia Vaccine: No <Heather Sepulveda APRN - Last Filed: 12/28/24 21:55> ROS Obtained: Yes All systems reviewed & no additional complaints except as documented Physical Exam <Heather Sepulveda APRN - Last Filed: 12/28/24 21:55> General General appearance: alert and in no apparent distress Head Head exam: atraumatic and normocephalic Eye Eye exam: Present PERRL and EOMI Neck Neck exam: Present trachea midline Chest Chest inspection: Present symmetric chest wall rise Respiratory Respiratory exam: Present normal lung sounds bilaterally and other (Tachypneic) Cardiovascular Cardiovascular exam: Present regular rate, tachycardia and normal heart sounds Abdominal Exam Abdominal exam: Present soft and normal bowel sounds; Absent tenderness Extremities Exam Extremities exam: Present normal inspection and full ROM Neurological Exam Neurological exam: Present alert and oriented X3 Skin Skin exam: Present warm, dry and intact Medical Decision Making <Heather Sepulveda, RIVETING MACHINE OPERATOR AUTOMATIC - Last Filed: 12/28/24 21:55> Medical Records Screening: Per USPSTF and CDC recommendations, given the prevalence of disease in our region, it is our hospital?s policy to screen for HIV and viral Hepatitis for all patients aged 18 and over and those with ongoing risk factors. Tuan Inquiry Pt receiving controlled substance: No Vital Signs: 12/28/24 18:31 12/28/24 19:00 12/28/24 19:34 Temperature 98.9 F Temperature Source Oral Pulse Rate 121 H 124 H Pulse Rate [Radial] 142 H Respiratory Rate 20 15 18 Blood Pressure 116/73 126/73 Blood Pressure [Right Arm] 121/75 Blood Pressure Mean Blood Pressure Mean [Right Arm] 90 Blood Pressure Source [Right Arm] Automatic Cuff Blood Pressure Position [Right Arm] Sitting 02 Sat by Pulse Oximetry 100 99 100 Oxygen Delivery Method Room Air 12/28/24 19:42 12/28/24 20:00 12/28/24 20:30 Temperature 100.3 F H Temperature Source Oral Pulse Rate 120 H 111 H Pulse Rate [Radial] Respiratory Rate 15 20 Blood Pressure 109/70 L 111/74 Blood Pressure [Right Arm] Blood Pressure Mean Blood Pressure Mean [Right Arm] Blood Pressure Source [Right Arm] Blood Pressure Position [Right Arm] 02 Sat by Pulse Oximetry 99 96 Oxygen Delivery Method 12/28/24 21:00 12/28/24 21:31 12/28/24 21:50 Temperature 98.2 F Temperature Source Pulse Rate 95 H 95 H 95 H Pulse Rate [Radial] Respiratory Rate 12 14 16 Blood Pressure 120/74 128/72 128/72 Blood Pressure [Right Arm] Blood Pressure Mean 85 Blood Pressure Mean [Right Arm] Blood Pressure Source [Right Arm] Blood Pressure Position [Right Arm] 02 Sat by Pulse Oximetry 97 96 Oxygen Delivery Method Room Air Lab Data Lab Results 12/28/24 18:31: SARS-CoV-2 (PCR) Detected A, Influenza A Untype (PCR) Not detected, Influenza Type B (PCR) Not detected 12/28/24 18:51: WBC 6.7, RBC 5.26, Hgb 13.4, Hct 41.1, MCV 78.1 L, MCH 25.5 L, MCHC 32.6, RDW 16.2, Plt Count 216, MPV 11.5 H, Neut % (Auto) 83.0 H, Lymph % (Auto) 8.6 L, [place] % (Auto) 6.6, Eos % (Auto) 0.9, Baso % (Auto) 0.6, Neut # (Auto) 5.5, Lymph # (Auto) 0.6 L, [place] # (Auto) 0.4, Eos # (Auto) 0.1, Baso # (Auto) 0.0, D-Dimer 0.38, Sodium 138, Potassium 3.7, Chloride 103, Carbon Dioxide 25, Anion Gap 13.7, BUN 7, Creatinine 0.90, Estimated Creat Clear 144, Estimated GFR 76, Est GFR ( Amer) 92, Glucose 110 H, Calcium 9.5, Total Bilirubin 0.7, AST 23, ALT 12, Alkaline Phosphatase 73, Troponin I < 0.01, N T-Pro-B Natriuret Pep 191 H, Total Protein 7.6, Albumin 4.5, Globulin 3.1, Albumin/Globulin Ratio 1.5, HCV Ab LATESHA w/Rflx PCR Qn Negative, HIV Ag/Ab Combo Qual Negative 12/28/24 19:32: Urine Color Yellow, Urine Appearance Clear, Urine pH 7.5, Ur Specific [place] 1.020, Urine Protein Negative, Urine Glucose (UA) Negative, Urine Ketones Negative, Urine Blood Negative, Urine Nitrate Negative, Urine Bilirubin Negative, Urine Urobilinogen 0.2, Ur Leukocyte Esterase Negative, Urine RBC None, Urine WBC Occasional, Ur Squamous Epith Cells Occasional, Urine Bacteria Trace, Urine HCG, Qual Negative 12/28/24 20:29: Lactate 0.5 L 12/28/24 18:51 12/28/24 18:51 Orders (Tests/Meds): ED MEDICATIONS Discontinued Medications Generic Name Dose Route Start Last Admin Trade Name Freq PRN Reason Stop Dose Admin Acetaminophen 1,000 mg 12/28/24 19:45 12/28/24 19:52 Acetaminophen 500mg Tab PO 12/28/24 19:46 1,000 mg ONCE ONE Administration Sodium Chloride 1,000 mls @ 999 mls/hr 12/28/24 18:41 12/28/24 20:25 Sod Chlor 0.9% 1000ml Bag IV 12/28/24 19:41 Infused .Q1H1M ONE Infusion Sodium Chloride 1,000 mls @ 999 mls/hr 12/28/24 20:41 12/28/24 21:52 Sod Chlor 0.9% 1000ml Bag IV 12/28/24 21:41 Infused .Q1H1M ONE Infusion Ketorolac Tromethamine 30 mg 12/28/24 19:45 12/28/24 19:52 Ketorolac 30mg/Ml Vial IV 12/28/24 19:46 30 mg ONCE ONE Administration ORDERS Category Date Time Status CXR 2 view (NOT portable) [XR chest 2V] Stat Exams 12/28/24 20:41 Completed BNP [NT Pro Brain Natriuretic Pep.] Stat Lab 12/28/24 18:51 Completed CBC w/Auto Diff [Complete Blood Count Auto Diff] Stat Lab 12/28/24 18:51 Completed CMP [Comprehensive Metabolic Panel] Stat Lab 12/28/24 18:51 Completed D-Dimer Stat Lab 12/28/24 18:51 Completed HIV Combo Stat Lab 12/28/24 18:51 Completed Hepatitis C Ab Qual. W/ RFX Stat Lab 12/28/24 18:51 Completed Lactic Acid Stat Lab 12/28/24 20:29 Completed Rapid PCR Covid and Flu A/B Stat Lab 12/28/24 18:31 Completed Trop I [Troponin I] Stat Lab 12/28/24 18:51 Completed UA [Urinalysis and Microscopic] Stat Lab 12/28/24 19:32 Completed Urine , HCG Qual. Stat Lab 12/28/24 19:32 Completed Medical Decision Narrative: In summary patient is an 24-year-old female who presents emergency department for evaluation of bodyaches, generalized malaise and fatigue, shortness of breath, nonproductive cough that started yesterday. 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 Patient is hemodynamically stable albeit tachycardic up in the 130s, tachypneic, on room air, Upon arrival, afebrile. Unremarkable nonfocal physical exam aside from tachycardia. Differential diagnosis includes pneumonia, COVID, PE. Initial workup will be conducted with hematologic labs, imaging to include a CTA of the chest to rule out PE, and a COVID swab. Initial interventions include 1 L IV fluid bolus. Initial workup reviewed by me no leukocytosis noted, lactic acid negative, BNP at 191, troponin was negative, D-dimer was negative. UA was noninfectious. Chest x-ray on informal read did not show any acute focal infiltrates. Patient was initially tachycardic upon arrival, did receive a total of 2 L of IV fluids and had resolution of her tachycardia with a heart rate now down between 99 and 103. Tylenol and Toradol given for fever and bodyaches. EKG showed sinus tachycardia, no ST elevation. CTA of the chest was deferred as D-dimer was negative and patient was positive for COVID and had a fever which would explain her symptoms. Wells score was 1.5 which is also the low probability for PE. Upon repeat evaluation patient had resolution of symptoms, not complaining any shortness of breath, no chest pain. Reports her myalgias are significantly improved, patient states she actually feels much better. Given this patient medically stable and appropriate for discharge at this time. You have been diagnosed with COVID. You may return to work on . Practice good hand hygiene. Alternate with Tylenol and Motrin for myalgias and fevers. It is typically recommended to avoid social contact until you have been fever free and have improving symptoms for at least 24 hours. <Wilma Newsome, DO - Last Filed: 12/29/24 00:21> Vital Signs: 12/28/24 18:31 12/28/24 19:00 12/28/24 19:34 Temperature 98.9 F Temperature Source Oral Pulse Rate 121 H 124 H Pulse Rate [Radial] 142 H Respiratory Rate 20 15 18 Blood Pressure 116/73 126/73 Blood Pressure [Right Arm] 121/75 Blood Pressure Mean Blood Pressure Mean [Right Arm] 90 Blood Pressure Source [Right Arm] Automatic Cuff Blood Pressure Position [Right Arm] Sitting 02 Sat by Pulse Oximetry 100 99 100 Oxygen Delivery Method Room Air 12/28/24 19:42 12/28/24 20:00 12/28/24 20:30 Temperature 100.3 F H Temperature Source Oral Pulse Rate 120 H 111 H Pulse Rate [Radial] Respiratory Rate 15 20 Blood Pressure 109/70 L 111/74 Blood Pressure [Right Arm] Blood Pressure Mean Blood Pressure Mean [Right Arm] Blood Pressure Source [Right Arm] Blood Pressure Position [Right Arm] 02 Sat by Pulse Oximetry 99 96 Oxygen Delivery Method 12/28/24 21:00 12/28/24 21:31 09/21/25 21:50 Temperature 98.2 F Temperature Source Pulse Rate 95 H 95 H 95 H Pulse Rate [Radial] Respiratory Rate 12 14 16 Blood Pressure 120/74 128/72 128/72 Blood Pressure [Right Arm] Blood Pressure Mean 85 Blood Pressure Mean [Right Arm] Blood Pressure Source [Right Arm] Blood Pressure Position [Right Arm] 02 Sat by Pulse Oximetry 97 96 Oxygen Delivery Method Room Air Lab Data Lab results reviewed: Yes I reviewed the patient's lab results. Lab Results 12/28/24 18:31: SARS-CoV-2 (PCR) Detected A, Influenza A Untype (PCR) Not detected, Influenza Type B (PCR) Not detected 12/28/24 18:51: WBC 6.7, RBC 5.26, Hgb 13.4, Hct 41.1, MCV 78.1 L, MCH 25.5 L, MCHC 32.6, RDW 16.2, Plt Count 216, MPV 11.5 H, Neut % (Auto) 83.0 H, Lymph % (Auto) 8.6 L, [place] % (Auto) 6.6, Eos % (Auto) 0.9, Baso % (Auto) 0.6, Neut # (Auto) 5.5, Lymph # (Auto) 0.6 L, [place] # (Auto) 0.4, Eos # (Auto) 0.1, Baso # (Auto) 0.0, D-Dimer 0.38, Sodium 138, Potassium 3.7, Chloride 103, Carbon Dioxide 25, Anion Gap 13.7, BUN 7, Creatinine 0.90, Estimated Creat Clear 144, Estimated GFR 76, Est GFR ( Amer) 92, Glucose 110 H, Calcium 9.5, Total Bilirubin 0.7, AST 23, ALT 12, Alkaline Phosphatase 73, Troponin I < 0.01, N T-Pro-B Natriuret Pep 191 H, Total Protein 7.6, Albumin 4.5, Globulin 3.1, Albumin/Globulin Ratio 1.5, HCV Ab LATESHA w/Rflx PCR Qn Negative, HIV Ag/Ab Combo Qual Negative 12/28/24 19:32: Urine Color Yellow, Urine Appearance Clear, Urine pH 7.5, Ur Specific [place] 1.020, Urine Protein Negative, Urine Glucose (UA) Negative, Urine Ketones Negative, Urine Blood Negative, Urine Nitrate Negative, Urine Bilirubin Negative, Urine Urobilinogen 0.2, Ur Leukocyte Esterase Negative, Urine RBC None, Urine WBC Occasional, Ur Squamous Epith Cells Occasional, Urine Bacteria Trace, Urine HCG, Qual Negative 12/28/24 20:29: Lactate 0.5 L Orders (Tests/Meds): ED MEDICATIONS Discontinued Medications Generic Name Dose Route Start Last Admin Trade Name Bensonq PRN Reason Stop Dose Admin Acetaminophen 1,000 mg 12/28/24 19:45 12/28/24 19:52 Acetaminophen 500mg Tab PO 12/28/24 19:46 1,000 mg ONCE ONE Administration Sodium Chloride 1,000 mls @ 999 mls/hr 12/28/24 18:41 12/28/24 20:25 Sod Chlor 0.9% 1000ml Bag IV 12/28/24 19:41 Infused .Q1H1M ONE Infusion Sodium Chloride 1,000 mls @ 999 mls/hr 12/28/24 20:41 12/28/24 21:52 Sod Chlor 0.9% 1000ml Bag IV 12/28/24 21:41 Infused .Q1H1M ONE Infusion Ketorolac Tromethamine 30 mg 12/28/24 19:45 12/28/24 19:52 Ketorolac 30mg/Ml Vial IV 12/28/24 19:46 30 mg ONCE ONE Administration ORDERS Category Date Time Status CXR 2 view (NOT portable) [XR chest 2V] Stat Exams 12/28/24 20:41 Completed BNP [NT Pro Brain Natriuretic Pep.] Stat Lab 12/28/24 18:51 Completed CBC w/Auto Diff [Complete Blood Count Auto Diff] Stat Lab 12/28/24 18:51 Completed CMP [Comprehensive Metabolic Panel] Stat Lab 12/28/24 18:51 Completed D-Dimer Stat Lab 12/28/24 18:51 Completed HIV Combo Stat Lab 12/28/24 18:51 Completed Hepatitis C Ab Qual. W/ RFX Stat Lab 12/28/24 18:51 Completed Lactic Acid Stat Lab 12/28/24 20:29 Completed Rapid PCR Covid and Flu A/B Stat Lab 12/28/24 18:31 Completed Trop I [Troponin I] Stat Lab 12/28/24 18:51 Completed UA [Urinalysis and Microscopic] Stat Lab 12/28/24 19:32 Completed Urine , HCG Qual. Stat Lab 12/28/24 19:32 Completed Medical Decision Narrative: In summary patient is an 24-year-old female who presents emergency department for evaluation of bodyaches, generalized malaise and fatigue, shortness of breath, nonproductive cough that started yesterday. 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 Patient is hemodynamically stable albeit tachycardic up in the 130s, tachypneic, on room air, Upon arrival, afebrile. Unremarkable nonfocal physical exam aside from tachycardia. Differential diagnosis includes pneumonia, COVID, PE. Initial workup will be conducted with hematologic labs, imaging to include a CTA of the chest to rule out PE, and a COVID swab. Initial interventions include 1 L IV fluid bolus. Initial workup reviewed by me no leukocytosis noted, lactic acid negative, BNP at 191, troponin was negative, D-dimer was negative. UA was noninfectious. Chest x-ray on informal read did not show any acute focal infiltrates. Patient was initially tachycardic upon arrival, did receive a total of 2 L of IV fluids and had resolution of her tachycardia with a heart rate now down between 99 and 103. Tylenol and Toradol given for fever and bodyaches. EKG showed sinus tachycardia, no ST elevation. CTA of the chest was deferred as D-dimer was negative and patient was positive for COVID and had a fever which would explain her symptoms. Wells score was 1.5 which is also the low probability for PE. Upon repeat evaluation patient had resolution of symptoms, not complaining any shortness of breath, no chest pain. Patient's tachycardia improved after 2 L of IVF and was 99 prior to DC. Reports her myalgias are significantly improved, patient states she actually feels much better. Given this patient medically stable and appropriate for discharge at this time. You have been diagnosed with COVID. You may return to work on . Practice good hand hygiene. Alternate with Tylenol and Motrin for myalgias and fevers. It is typically recommended to avoid social contact until you have been fever free and have improving symptoms for at least 24 hours. Critical Care <Heather Sepulveda, RIVETING MACHINE OPERATOR [employer]IC - Last Filed: 12/28/24 21:55> Critical Care Time Critical Care Time: No
[2024-12-28] MEDS: 0.9 % SODIUM CHLORIDE 1000ML 1,000 ML 999 ML IV ×2 (18:51→20:57)
[2024-12-28 18:59] LABS: Hematocrit 41.1 % (37.0-47.0); Hemoglobin 13.4 g/dL (12.2-16.2); Immature Granulocytes % 0.3 %; Mean Corpuscular HGB Conc 32.6 g/dL (31.8-35.4); Mean Corpuscular Hemoglobin 25.5 pg (27.0-31.2); Mean Corpuscular Volume 78.1 fl (81-99); Nucleated Red Blood Cells % 0 %; Platelet Count 216 K/mm3 (142-424); Red Blood Count 5.26 M/mm3 (4.20-5.40); Red Cell Distribution Width-SD 46.0 fL; White Blood Count 6.7 K/mm3 (4.8-10.8)
[2024-12-28 19:09] LABS: Coronavirus 19, PCR Detected (NotDetected)
[2024-12-28 19:37] LABS: Microscopic, Urine URINE MICROSCOPIC (MICROSCOPIC)
[2024-12-28 19:38] LABS: Albumin Level 4.5 g/dl (3.5-5.0); Chloride 103 mmol/L (98-107); Potassium 3.7 mmoL/L (3.5-5.1); Sodium 138 mmol/L (136-145)
[2024-12-28 19:39] LABS: Bilirubin,Urine Negative (Negative); Color,Urine YELLOW (Yellow); Glucose,Urine (UA) Negative (Negative); Ketones,Urine Negative (Negative); Leukocyte Esterase,Urine Negative (Negative); PH,Urine 7.5 (5.0-8.5); Protein,Urine Negative (Negative); Specific Gravity, Urine 1.020 (1.005-1.030); Urobilinogen,Urine 0.2 EU/dl (0.2)
[2024-12-28 19:40] LABS: Blood Urea Nitrogen 7 mg/dl (7-17); Creatinine Clearance Estimated 144 mL/min (50-200); Creatinine,Serum 0.90 mg/dl (0.52-1.04); Estimated Glomerular Filt Rate 76 ml/min (>60); GFR (African American) 92 ML/MIN (>60)
[2024-12-28 19:41] LABS: Alanine Aminotransferase 12 U/L (12-78); Albumin/Globulin Ratio 1.5 (1.1-1.8); Alkaline Phosphatase 73 U/L (38-126); Anion Gap 13.7 mEq/L (5-15); Aspartate Amino Transferase 23 U/L (14-36); Bilirubin,Total 0.7 mg/dl (0.2-1.3); Calcium 9.5 mg/dl (8.4-10.2); Carbon Dioxide 25 mmol/L (22.0-30.0); Globulin 3.1 g/dL (1.3-3.2); Glucose 110 mg/dl (74-100); Total Protein,Serum 7.6 g/dl (6.3-8.2)
[2024-12-28 19:43] LABS: Urine Pregnancy, HCG Qual. Negative (Negative)
[2024-12-28 19:49] LABS: NT Pro Brain Natriuretic Pep. 191 pg/mL (0-125)
[2024-12-28] MEDS: KETOROLAC 30MG/ML VIAL 30 MG IV (19:52)
[2024-12-28] MEDS: ACETAMINOPHEN 500MG TAB 1000 MG PO (19:52)
[2024-12-28 20:05] LABS: Troponin I < 0.01 ng/ml (0.00-0.034)
[2024-12-28 20:10] LABS: Bacteria,Urine Trace /lpf; Squamous Epithelial Cell,Urine Occasional #/hpf (0-5); WBC,Urine Occasional #/hpf (0-3)
[2024-12-28 20:29] LABS: D-Dimer 0.38 ug/mL (0.0-0.5)
[2024-12-28 20:31] LABS: Hepatitis C Ab Qual. W/ RFX NEGATIVE (Negative)
--- NOTE | 2024-12-28 20:41 | XR_ITS ---
PROCEDURE INFORMATION: Exam: XR Chest Exam date and time: 12/28/2024 8:36 PM Age: 24 years old Clinical indication: Shortness of breath TECHNIQUE: Imaging protocol: Radiologic exam of the chest. Views: 2 views. COMPARISON: No relevant prior studies available. FINDINGS: Lungs: Unremarkable. No consolidation. Pleural spaces: Unremarkable. No pleural effusion. No pneumothorax. Heart/Mediastinum: Unremarkable. No cardiomegaly. Bones/joints: Unremarkable. IMPRESSION: No acute findings.
== END 2024-12-28 21:53 | disposition home or self-care (01) ==
PROVIDERS: Nurse Practitioner Acute Care; Emergency Provider Student in an Organized Health Care Education/Training Program; PCP Physician Assistant
DX: U07.1 COVID-19 (principal); R06.02 Shortness of breath; R00.0 Tachycardia, unspecified; R07.0 Pain in throat
CPT/HCPCS: 71046; 80053; 81001; 81025; 83605; 83880; 84484; 85025; 85378; 86803; 87389; 87636; 93005; 96361; 96374; 99285; J1885; J7030